=== PATIENT | male | born 1950 | race Caucasian/White ===

== ENCOUNTER 2016-03-20 11:19 | Day surgery (SDC) | payer OTHER ==
[2016-03-20] MEDS ORDERED: LACTATED RINGERS 1,000 ML IV ONE (11:53)
[2016-03-20] MEDS ORDERED: fentaNYL 250 MCG/5 ML VIAL IVP ONE (13:12)
[2016-03-20] MEDS ORDERED: MIDAZOLAM 2 MG/2 ML VIAL IVP ONE (13:12)
== END 2016-03-20 11:20 | disposition home or self-care (01) ==
PROC: 0DBL8ZZ Excision of Transverse Colon, Via Natural or Artificial Opening Endoscopic (ICD-10-PCS; 2016-03-20)
PROC: 0DBH8ZZ Excision of Cecum, Via Natural or Artificial Opening Endoscopic (ICD-10-PCS; principal; 2016-03-20 12:30)
DX: Z12.11 Encounter for screening for malignant neoplasm of colon (principal); D12.3 Benign neoplasm of transverse colon; D12.0 Benign neoplasm of cecum; K64.8 Other hemorrhoids; K57.30 Diverticulosis of large intestine without perforation or abscess without bleeding; Z87.891 Personal history of nicotine dependence; I10 Essential (primary) hypertension; Z95.0 Presence of cardiac pacemaker
CPT/HCPCS: 45380; J3010; J7120

== ENCOUNTER 2016-07-20 08:53 | Outpatient (CLI) | payer OTHER ==
[2016-07-20 09:21] LABS: CALCIUM 8.6 mg/dL (8.5-10.3); CREATININE 1.2 mg/dL (0.6-1.2); POTASSIUM 4.3 mmol/L (3.5-5.0)
[2016-07-20] MEDS ORDERED: IOPAMIDOL-300 100 ML VIAL IVP ONE (10:06)
--- NOTE | 2016-07-20 13:30 | CT Report ---
CT ANGIOGRAM OF THE ABDOMEN AND PELVIS WITH AND WITHOUT CONTRAST: 07/20/2016 CLINICAL INDICATION: History of abdominal aortic aneurysm with [id number]-ph-fwemr stent graft exclusion. COMPARISON: 12/27/2015. TECHNIQUE: Axial CT images of the abdomen and pelvis were obtained prior to and following 100 mL of Isovue-300, in early arterial and delayed phases. Sagittal and coronal 3D reconstructions were performed. FINDINGS: Limited evaluation of the lung bases demonstrates minimal atelectasis. ABDOMEN: Bilateral adrenal adenomas are stable. The kidneys demonstrate bilateral cortical cysts. Ktrfl-hb-qolbb stent graft is in stable position. Aneurysm sac has decreased in size, now measuring 5.9 cm maximal diameter ( previously 6.1 cm). There is normal enhancement of the fwqyx-dh-keerc stent graft following intravenous contrast administration, with no abnormal enhancement seen within the aneurysm sac on early arterial or delayed phases. The celiac, superior mesenteric, and renal arteries demonstrate normal arterial enhancement. No bowel dilatation, free gas, or free fluid is present. The gallbladder is not distended. PELVIS: Stent graft terminates in the common iliacs bilaterally. There is normal enhancement of the common, external, and internal iliac arteries. Sigmoid diverticulosis is present, without CT evidence of diverticulitis. No pelvic adenopathy or free fluid is present. The osseous structures demonstrate degenerative changes. IMPRESSION: AGGEY-HL-TRNGO STENT GRAFT IN PLACE, WITHOUT EVIDENCE OF LEAK. NO SIGNIFICANT INTERVAL CHANGE. In accordance with CT protocol optimization, one or more of the following dose reduction techniques were utilized for this exam: automated exposure control, adjustment of mA and/or KV based on patient size, or use of iterative reconstructive technique. JOB #: [id number] EXT JOB #: [id number] ANDREEA
== END 2016-07-20 08:54 | disposition home or self-care (01) ==
LOC: LAB 08:53
PROVIDERS: ATTEND Nurse Practitioner Family
DX: I71.4 Abdominal aortic aneurysm, without rupture (principal); Z95.0 Presence of cardiac pacemaker
CPT/HCPCS: 36415; 74178; 80048; Q9967

== ENCOUNTER 2017-01-06 06:46 | Outpatient (CLI) | payer OTHER ==
[2017-01-06 07:11] LABS: CREATININE 1.1 mg/dL (0.6-1.2)
[2017-01-06] MEDS ORDERED: IOPAMIDOL-300 100 ML VIAL ONE (07:31)
[2017-01-06] MEDS ORDERED: IOPAMIDOL-300 100 ML VIAL IVP ONE (08:17)
--- NOTE | 2017-01-06 17:05 | CT Report ---
EXAM: CT ANGIOGRAM ABDOMEN AND PELVIS WITH CONTRAST EXAM DATE: 01/06/2017 08:17 AM. CLINICAL HISTORY: Bloody stool. Melena. History of stent graft repair of abdominal aortic aneurysm. COMPARISONS: CTA abdomen and pelvis 07/20/2016. TECHNIQUE: Noncontrast scan followed by thin sections spiral CT angiography through the abdomen and p nani in the arterial phase. IV contrast: 100 cc Isovue-300. Enteric contrast: No. Reconstructions: C oronal, sagittal, and 3D MIP reconstructions. In accordance with CT protocol optimization, one or more of the following dose reduction techniques w ere utilized for this exam: automated exposure control, adjustment of mA and/or KV based on patient s ize, or use of iterative reconstructive technique. FINDINGS: Vasculature: Stable widely patent bifurcating aortoiliac endograft successfully occluding the fusifor m infrarenal abdominal aortic aneurysm. No endoleak identified on the available images. No delayed sc ans obtained. [place] aneurysm sac remains at 5.8 cm in axial diameter (coronal 83/14). Calcified aort ic, and iliac arterial plaques. No dissection. Patent major aortic branch vessels, noting calcified p laques at the origin of SMA and renal arteries as before. Lung Bases: Mild atelectasis or scarring. Stable heart size and small aneurysm with overlying myometr ial calcification at the left ventricular apex. Pacer leads in right atrial appendage and right ventr icular apex. Abdominal Solid Organs: Stable solid abdominal organs including hypodense bilateral adrenal nodules c onsistent with lipid-rich adenomas. Bilateral renal cysts up to 4.1 cm in maximal diameter in the lef t inferior pole. A stable hyperdense 1 exophytic upper pole left renal nodule, presumably hyperdense cyst. Symmetrical renal parenchymal enhancement. Gallbladder/Bile Ducts: Cholelithiasis. No suggestion of acute cholecystitis or ductal dilatation. Peritoneal Cavity: Small hiatus hernia. Suboptimally distended stomach presumably account for the zafar arent gastric mural thickening. No perigastric infiltration. No intestinal dilatation or acute inflam mation. Colonic diverticulosis. Normal appendix. No free air, free fluid, or mesenteric adenopathy by size criteria. Pelvic Organs: Slightly distended bladder, noting small urachal remnant. Other pelvic organs unchange d. Mildly prominent fatty bilateral inguinal canals. Bones: Stable degenerative changes of the spine. IMPRESSION: 1. No acute inflammatory or obstructive process identified. 2. Colonic diverticulosis without diverticulitis. 3. Small hiatus hernia. Nonspecific thickening of the contracted stomach. 4. Stable bifurcating aortoiliac stent graft excluding the infrarenal abdominal aortic aneurysm. No a pparent endoleak or enlargement of the [place] aneurysm sac. 5. Cholelithiasis. 6. Stable renal cysts. 7. 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 [facility] Referring Provider Line: [phone] SITE ID: [id number]
== END 2017-01-06 06:47 | disposition home or self-care (01) ==
LOC: LAB 06:46
PROVIDERS: ATTEND Surgery
DX: K57.30 Diverticulosis of large intestine without perforation or abscess without bleeding (principal); K44.9 Diaphragmatic hernia without obstruction or gangrene; K80.20 Calculus of gallbladder without cholecystitis without obstruction; N28.1 Cyst of kidney, acquired; Z95.5 Presence of coronary angioplasty implant and graft
CPT/HCPCS: 36415; 74174; 82565; Q9967

== ENCOUNTER 2017-02-05 10:00 | Day surgery (SDC) | payer OTHER ==
[2017-02-05] MEDS ORDERED: LACTATED RINGERS 1,000 ML IV ONE (10:22)
[2017-02-05] MEDS ORDERED: LIDO GARGLE 30 ML BOTTLE TOP ONE (10:55)
[2017-02-05] MEDS ORDERED: BENZOCAINE/TETRACAINE/BUTAMBEN SPRAY 56 GM TOP ONE (10:55)
[2017-02-05] MEDS ORDERED: MIDAZOLAM 2 MG/2 ML VIAL IVP ONE (11:00)
[2017-02-05] MEDS ORDERED: LIDOCAINE-MPF 2% 5 ML VIAL IM ONE (11:00)
[2017-02-05] MEDS ORDERED: ePHEDrine 50 MG/ML AMP IVP ONE (11:00)
[2017-02-05] MEDS ORDERED: PROPOFOL 200 MG/20 ML VIAL IVP ONE (11:00)
[2017-02-05 11:46] VITALS: BP 102/76
== END 2017-02-05 10:01 | disposition home or self-care (01) ==
LOC: SDS 10:00
PROVIDERS: ATTEND Surgery
PROC: 0DB68ZX Excision of Stomach, Via Natural or Artificial Opening Endoscopic, Diagnostic (ICD-10-PCS; principal; 2017-02-05 11:15)
DX: K29.80 Duodenitis without bleeding (principal); K29.70 Gastritis, unspecified, without bleeding; K44.9 Diaphragmatic hernia without obstruction or gangrene; I10 Essential (primary) hypertension; Z95.0 Presence of cardiac pacemaker; E78.00 Pure hypercholesterolemia, unspecified; Z79.01 Long term (current) use of anticoagulants
CPT/HCPCS: 43239; 87081; A9270; J7120

== ENCOUNTER 2017-06-27 07:16 | Outpatient (CLI) | payer OTHER ==
--- NOTE | 2017-06-27 09:33 | CT Report ---
CT ABDOMEN AND PELVIS WITHOUT CONTRAST: 06/27/2017 CLINICAL INDICATION: History of stent graft placement. COMPARISON: 07/20/2016. FINDINGS: Axial CT images of the abdomen and pelvis were obtained without oral or intravenous contrast. Limited evaluation of the lung bases is unremarkable. Abdomen: Allowing for the lack of contrast, the liver, spleen, pancreas appear unremarkable. The gallbladder demonstrates cholelithiasis, stable. Bilateral adrenal adenomas are stable. The kidneys demonstrate cortical cysts. Aortobiiliac stent graft appears stable. No bowel dilatation, free gas, or free fluid is present. No abdominal adenopathy is seen. Pelvis: Sigmoid diverticulosis is present, without CT evidence of diverticulitis. The appendix is seen in the right lower quadrant, and is normal in caliber. No pelvic adenopathy or free fluid is present. Osseous structures demonstrate degenerative changes. IMPRESSION: Stable noncontrast appearance of aortobiiliac stent graft. No significant interval change from 07/20/2016. TD: 06/27/2017 09:33
== END 2017-06-27 07:17 | disposition home or self-care (01) ==
LOC: DI 07:16
PROVIDERS: ATTEND Surgery Vascular Surgery
DX: Z95.828 Presence of other vascular implants and grafts (principal); K57.30 Diverticulosis of large intestine without perforation or abscess without bleeding
CPT/HCPCS: 74176

== ENCOUNTER 2018-05-22 08:46 | Outpatient (CLI) | payer OTHER ==
[2018-05-22 09:15] LABS: ALBUMIN 4.2 g/dL (3.2-5.5); ALBUMIN/GLOBULIN RATIO 1.4 (1.0-2.2); BILIRUBIN,TOTAL 1.1 mg/dL (0.2-1.0); CALCIUM 8.5 mg/dL (8.5-10.3); CREATININE 1.3 mg/dL (0.6-1.2); MAGNESIUM 1.9 mg/dL (1.7-2.8); TOTAL PROTEIN 7.1 g/dL (6.7-8.2)
[2018-05-22 09:38] LABS: INR 1.7 (0.8-1.2); PT - PROTHROMBIN TIME 18.9 secs (9.9-12.6)
== END 2018-05-22 08:47 | disposition home or self-care (01) ==
LOC: LAB 08:46
PROVIDERS: ATTEND Internal Medicine Cardiovascular Disease
DX: Z79.899 Other long term (current) drug therapy (principal)
CPT/HCPCS: 36415; 80053; 83735; 84443; 85610

== ENCOUNTER 2018-05-26 04:57 | Outpatient (CLI) | payer OTHER | END 2018-05-26 04:58 | disposition critical access hospital (66) | LOC: EMS 04:57 | PROVIDERS: ATTEND Surgery | DX: R06.02 Shortness of breath (principal); R53.1 Weakness | CPT/HCPCS: A0425; A0427 ==

== ENCOUNTER 2018-05-26 05:04 | Emergency (ER) | payer OTHER ==
[2018-05-26] MEDS ORDERED: IPRATROPIUM/ALBUTEROL 3 ML NEB INH STA ×2 (05:13→10:14)
--- NOTE | 2018-05-26 05:15 | ED Physician Documentation ---
PD HPI DYSPNEA - Stated complaint Stated Complaint: SOA - History obtained from History obtained from: Patient - History of Present Illness Timing - onset: Yesterday Timing - onset during: Rest Timing - duration: Days (2) Timing - details: Gradual onset, Still present Inciting event(s): URI Improved by: Inhaler/neb Worsened by: Exertion, Laying flat, Coughing Associated symptoms: Cough, Wheezing. No: Fever, Chest pain / discomfort Similar symptoms before: Has not had sx before Recently seen: Clinic - Additional information Additional information: 67-year-old male with a prior history of coronary artery disease and CABG has developed acute dyspnea. He states that he is not able to get a full deep breath and he has never had these symptoms previously. He denies ever using an inhaler. He did feel that he was getting a cough and congestion and then he developed this difficulty breathing. He denies any chest pain associated with this. He does feel that he was having some difficulty for several days before the onset of shortness of breath. He has been into see Dr. Batsheva Calhoun recently and has an appointment to get a cardioversion done for persistent atrial fibrillation. He has been placed on amiodarone recently. Review of Systems Constitutional: denies: Fever, Chills, Myalgias Eyes: denies: Decreased vision Ears: denies: Ear pain Nose: denies: Rhinorrhea / runny nose, Congestion Throat: denies: Sore throat Cardiac: denies: Chest pain / pressure, Palpitations, Pedal edema, Calf pain Respiratory: reports: Dyspnea, Cough GI: denies: Abdominal Pain, Nausea, Vomiting : denies: Dysuria, Frequency Skin: denies: Rash Musculoskeletal: denies: Neck pain, Back pain, Extremity pain Neurologic: denies: Generalized weakness, Focal weakness, Numbness PD PAST MEDICAL HISTORY - Past Medical History Cardiovascular: Hypertension, High cholesterol, VT, Atrial fibrillation Respiratory: None Endocrine/Autoimmune: None GI: GI bleed : None HEENT: None Psych: None Musculoskeletal: None Derm: None - Past Surgical History Cardiovascular: CABG, Pacemaker, AAA - Present Medications Home Medications: Ambulatory Orders Medication Instructions Recorded Confirmed Atorvastatin Calcium 80 mg PO DAILY 03/17/16 02/05/17 Carvedilol 3.125 mg PO DAILY 03/17/16 02/05/17 Lisinopril [Zestril] 5 mg PO DAILY 03/17/16 02/05/17 Rivaroxaban [Xarelto] 20 mg PO DAILY 03/17/16 02/05/17 - Allergies Allergies/Adverse Reactions: Allergies Allergy/AdvReac Type Severity Reaction Status Date / Time codeine AdvReac Nausea Verified 03/17/16 13:57 PD ED PE NORMAL - Vitals Vital signs reviewed: Yes - General General: Alert and oriented X 3, Well developed/nourished, Other (dyspneic at rest. ) - HEENT HEENT: Atraumatic, PERRL, EOMI - Neck Neck: Supple, no meningeal sign, No bony TTP - Cardiac Cardiac: RRR, No murmur - Respiratory Respiratory: Other (dyspneic at rest with diminished breath sounds bilat and expritory wheeze.) - Abdomen Abdomen: Soft, Non tender - Back Back: No CVA TTP, No spinal TTP - Derm Derm: Normal color, Warm and dry, No rash - Extremities Extremities: No deformity, No edema - Neuro Neuro: Alert and oriented X 3, basket person 2-12 intact, No motor deficit, No sensory deficit, Normal speech Eye Opening: Spontaneous Motor: Obeys Commands Verbal: Oriented GCS Score: 15 - Psych Psych: Normal mood, Normal affect Results - Vitals Vitals: Vital Signs - 24 hr 05/26/18 05/26/18 05/26/18 05:02 05:36 07:43 Temperature 36.4 C L 36.5 C Heart Rate 82 80 82 Respiratory 16 14 19 Rate Blood Pressure 172/109 H 113/97 H O2 Saturation 95 94 Oxygen O2 Source Nasal cannula - EKG (time done) 0507 Rate: Rate (enter#) (87) Rhythm: Atrial fibrillation Intervals: Wide QRS QRS: LVH Compare to prior EKG: Old EKG unavailable Computer interpretation: Agree with computer - Labs Labs: Laboratory Tests 05/26/18 05/26/18 05/26/18 05:25 05:25 05:25 WBC 9.3 RBC 4.42 L Hgb 15.6 Hct 46.2 MCV 104.4 H MCH 35.2 H MCHC 33.7 RDW 15.3 H Plt Count 149 MPV 10.0 Neut # (Auto) 7.8 H Lymph # (Auto) 0.7 L Harmon # (Auto) 0.7 Eos # (Auto) 0.0 Baso # (Auto) 0.0 Absolute Nucleated RBC 0.00 Nucleated RBC % 0.1 Sodium 139 Potassium 4.3 Chloride 100 L Carbon Dioxide 23 Anion Gap 16.0 H BUN 21 H Creatinine 1.3 H Estimated GFR (MDRD) 55 L Glucose 124 H Calcium 8.4 L Total Bilirubin 1.1 H AST 45 H ALT 29 Alkaline Phosphatase 55 Troponin I 0.07 B-Natriuretic Peptide Total Protein 7.4 Albumin 4.0 Globulin 3.4 Albumin/Globulin Ratio 1.2 Lipase 27 Urine Color Urine Clarity Urine pH Ur Specific [place] Urine Protein Urine Glucose (UA) Urine Ketones Urine Occult Blood Urine Nitrite Urine Bilirubin Urine Urobilinogen Ur Leukocyte Esterase Urine RBC Urine WBC Ur Squamous Epith Cells Urine Bacteria Urine Casts Ur Microscopic Review Urine Culture Comments 05/26/18 05/26/18 05:25 06:30 WBC RBC Hgb Hct MCV MCH MCHC RDW Plt Count MPV Neut # (Auto) Lymph # (Auto) Harmon # (Auto) Eos # (Auto) Baso # (Auto) Absolute Nucleated RBC Nucleated RBC % Sodium Potassium Chloride Carbon Dioxide Anion Gap BUN Creatinine Estimated GFR (MDRD) Glucose Calcium Total Bilirubin AST ALT Alkaline Phosphatase Troponin I B-Natriuretic Peptide 1051 H Total Protein Albumin Globulin Albumin/Globulin Ratio Lipase Urine Color YELLOW Urine Clarity CLEAR Urine pH 6.0 Ur Specific [place] 1.025 Urine Protein 30 H Urine Glucose (UA) NEGATIVE Urine Ketones 15 H Urine Occult Blood NEGATIVE Urine Nitrite NEGATIVE Urine Bilirubin NEGATIVE Urine Urobilinogen 0.2 (NORMAL) Ur Leukocyte Esterase NEGATIVE Urine RBC None Seen Urine WBC 0-3 Ur Squamous Epith Cells MOD Squamous H Urine Bacteria None Seen Urine Casts 3-5 Hyaline Casts Ur Microscopic Review INDICATED Urine Culture Comments NOT INDICATED - Rads (name of study) chest 1 view Radiology: Prelim report reviewed (Impression: Diffuse interstitial opacities with subtle nodular component raising question of interstitial pneumonia/bronchopneumonia. There could be a component of mild edema as well in this patient with cardiomegaly.), EMP read indepedently, See rad report Procedures - IVC sono (time) 3792 Bedside IVC sono: IVC measures (cm) (3.08), High CVP, Fluid overload PD MEDICAL DECISION MAKING - ED course Complexity details: reviewed old records, reviewed results, re-evaluated patient, considered differential, d/w patient, d/w software developer consultant (Dr. Elam top dyeing machine tender at [facility]: No beds today at [facility], patient will need echo and cath and should not go home from the ED. He indicates he was started on amioderone and this did not stop the afib. He is concened about grafts failing.) ED course: 67-year-old male with a 2-day history of dyspnea at rest and worse with exertion has some improvement with the use of a DuoNeb treatment and at the conclusion of his second treatment tells me that he feels back to normal. He certainly is not. His chest x-ray shows pulmonary edema and interrogation the inferior vena cava shows a vessel greater than 3 cm in size and the patient is administered intravenous Lasix. He has improvement with this. Dr. Elam recommends admission of this patient to a center with a top dyeing machine tender and a crime lab analyst as he is concerned that this likely represents a problem with graft failure and not just intolerance of afib. Departure - Departure Disposition: 02 Transfer Acute Care Hosp Clinical Impression: Congestive heart failure Qualifiers: Heart failure type: unspecified Heart failure chronicity: acute Qualified Code(s): I50.9 - Heart failure, unspecified Condition: Serious
[2018-05-26 05:32] LABS: BASOPHILS % (AUTO) 0.2 %; HGB - HEMOGLOBIN 15.6 g/dL (14.0-18.0); LYMPHOCYTES # (AUTO) 0.7 10^3/uL (1.5-3.5); LYMPHOCYTES % (AUTO) 7.8 %; MEAN CORPUSCULAR HEMOGLOBIN 35.2 pg (27.0-31.0); MEAN CORPUSCULAR HGB CONC 33.7 g/dL (32.0-36.0); MEAN CORPUSCULAR VOLUME 104.4 fL (80.0-94.0); MONOCYTES # (AUTO) 0.7 10^3/uL (0.0-1.0); MONOCYTES % (AUTO) 7.6 %; NEUTROPHILS # (AUTO) 7.8 10^3/uL (1.5-6.6); NEUTROPHILS % (AUTO) 84.4 %; PLT - PLATELET COUNT 149 10^3/uL (130-450); RED BLOOD COUNT 4.42 10^6/uL (4.70-6.10); RED CELL DISTRIBUTION WIDTH 15.3 % (12.0-15.0); WHITE BLOOD COUNT 9.3 x10^3/uL (4.8-10.8)
[2018-05-26 05:43] LABS: ALBUMIN/GLOBULIN RATIO 1.2 (1.0-2.2); BILIRUBIN,TOTAL 1.1 mg/dL (0.2-1.0); CALCIUM 8.4 mg/dL (8.5-10.3); CREATININE 1.3 mg/dL (0.6-1.2); TOTAL PROTEIN 7.4 g/dL (6.7-8.2)
--- NOTE | 2018-05-26 05:43 | XRAY Report ---
Reason: dyspnea Procedure Date: 05/26/2018 Accession Number: [id number] / [id number] Procedure: XR - Chest 1 View X-Ray CPT Code: 60145 FULL RESULT: EXAM: CHEST RADIOGRAPHY EXAM DATE: 05/26/2018 05:17 AM. CLINICAL HISTORY: Dyspnea. COMPARISON: ABDOMEN/PELVIS W/O 06/27/2017 7:24 AM. TECHNIQUE: 1 view. FINDINGS: Lungs/Pleura: Diffuse interstitial opacities with somewhat nodular component, particularly at the left lung base No large effusion. No gross pneumothorax. Mediastinum: Mild cardiomegaly. No mediastinal shift. Other: Post median sternotomy. Dual lead left chest pacer present. IMPRESSION: Diffuse interstitial opacities with subtle nodular component raising question of interstitial pneumonia/bronchopneumonia. There could be a component of mild edema as well in this patient with cardiomegaly. [facility]
[2018-05-26] MEDS ORDERED: FUROSEMIDE 40 MG/4 ML VIAL IVP STA (05:56)
[2018-05-26 06:32] LABS: BILIRUBIN,URINE NEGATIVE (NEGATIVE); GLUCOSE, URINE (UA) NEGATIVE (NEGATIVE); KETONES,URINE (UA) 15 mg/dL (NEGATIVE); LEUKOCYTE ESTERASE, URINE NEGATIVE (NEGATIVE); NITRITE,URINE NEGATIVE (NEGATIVE); OCCULT BLOOD,URINE NEGATIVE (NEGATIVE); PROTEIN,URINE 30 mg/dL (NEGATIVE); UROBILINOGEN,URINE 0.2 (NORMAL) E.U./dL (NORMAL)
[2018-05-26 06:33] LABS: CLARITY,URINE CLEAR (CLEAR)
[2018-05-26 06:38] LABS: RBC,URINE None Seen /HPF (0-5)
[2018-05-26 06:39] LABS: BACTERIA,URINE None Seen /HPF (None Seen); CASTS, URINE 3-5 Hyaline Casts /LPF; SQUAMOUS EPITHELIAL CELL,UR MOD Squamous (<= Few)
[2018-05-26 12:12] VITALS: BP 123/80
== END 2018-05-26 12:33 | disposition short-term general hospital (02) ==
LOC: EDUNIT# → ED 05:04
DX: I11.0 Hypertensive heart disease with heart failure (principal); I50.9 Heart failure, unspecified; I25.2 Old myocardial infarction; E78.00 Pure hypercholesterolemia, unspecified; I48.91 Unspecified atrial fibrillation; Z79.01 Long term (current) use of anticoagulants; Z95.0 Presence of cardiac pacemaker
CPT/HCPCS: 36415; 71045; 80053; 81001; 81003; 83690; 83880; 84484; 85025; 87086; 93005; 94640; 96374; 99284

== ENCOUNTER → 2018-07-19 | Outpatient (CLI) | payer OTHER | END | disposition home or self-care (01) | LOC: DI 07:03 | PROVIDERS: ATTEND Surgery Vascular Surgery | DX: Z53.9 Procedure and treatment not carried out, unspecified reason (principal) ==

== ENCOUNTER 2018-07-28 07:05 | Outpatient (CLI) | payer OTHER ==
--- NOTE | 2018-07-28 15:13 | XRAY Report ---
Reason: AORTIC STENT PLACEMENT Procedure Date: 07/28/2018 Accession Number: [id number] / [id number] Procedure: XR - Abdomen 2 View X-Ray CPT Code: 39967 FULL RESULT: EXAM: ABDOMEN RADIOGRAPHY EXAM DATE: 07/28/2018 07:20 AM. CLINICAL HISTORY: AORTIC STENT PLACEMENT. COMPARISON: ABDOMEN/PELVIS W/O 06/27/2017 7:24 AM. TECHNIQUE: 2 views including frontal and lateral views. FINDINGS: Lung Bases: Unremarkable. Bowel Gas Pattern: Within normal limits. No dilated gas-filled loops of bowel or abnormal colonic stool burden. Free Air: None. Other: Aortobiiliac stent graft is present. The position and course of the stent grafts appears unchanged compared to entry level accounting clerk images from prior CT of the abdomen and pelvis on 06/27/2017. No acute osseous abnormality. There are mild degenerative disk changes of the lumbar spine. IMPRESSION: 1. Nonobstructive bowel gas pattern. 2. Aortobiiliac stent graft position appears unchanged compared to 06/27/2017 [facility]
== END 2018-07-28 07:06 | disposition home or self-care (01) ==
LOC: DI 07:05
PROVIDERS: ATTEND Surgery Vascular Surgery
DX: Z09 Encounter for follow-up examination after completed treatment for conditions other than malignant neoplasm (principal); Z95.828 Presence of other vascular implants and grafts; Z86.79 Personal history of other diseases of the circulatory system
CPT/HCPCS: 74019

== ENCOUNTER 2018-08-05 07:21 | Outpatient (CLI) | payer OTHER ==
--- NOTE | 2018-08-05 09:43 | Ultrasound Report ---
Reason: ABDOMINAL AORTIC ANEURYSM,WITHOUT RUPTURE Procedure Date: 08/05/2018 Accession Number: [id number] / [id number] Procedure: US - Duplex Aorta Complete CPT Code: FULL RESULT: EXAM: AORTIC DOPPLER ULTRASOUND EXAM DATE: 08/05/2018 08:32 AM. CLINICAL HISTORY: Abdominal aortic aneurysm, without rupture. COMPARISON: ABDOMEN/PELVIS W/O 06/27/2017 7:24 AM. TECHNIQUE: Real-time sonographic imaging of retroperitoneal vascular structures, including color-flow, Doppler flow and spectral analysis was performed by the concrete mixer operator helper. Multiple community service representative static images were saved for review. FINDINGS: Aorta: The abdominal aorta status post endovascular repair is visualized including a bilobed infrarenal abdominal aortic aneurysm similar in configuration to the CT study in 2018. The sampled aorta and iliac vessels are patent by color Doppler. No definite flow is detected within the excluded aneurysm sac by color or spectral Doppler. Peak systolic velocity within the proximal aorta is 63 cm/s. In the stent graft at the mid aorta, peak systolic velocity is 73 cm/s. Right common iliac artery stent graft peak systolic velocity is 78 cm/s and a left common iliac artery stent graft peak systolic velocity is 76 cm/s. Taken orthogonally to the long axis of the aorta, the maximal dimensions of the aneurysm sac in the mid aorta is 4.7 x 5.9 cm with the larger dimension representing the maximal transverse dimension of the aneurysm sac and the second measurement orthogonally to this, as remeasured by the radiologist on image 16. With the same technique of the distal aneurysm sac measures 4.6 x 3.9 cm as remeasured by the radiologist on image 25. Compared to previous dimensions by CT, differences could be due to technique. Other: None. IMPRESSION: Patent stent graft with excluded aneurysm sac dimensions by ultrasound as described in detail above. No definite flow within the aneurysm sac by color Doppler. [facility]
== END 2018-08-05 07:22 | disposition home or self-care (01) ==
LOC: DI 07:21
PROVIDERS: ATTEND Surgery Vascular Surgery
DX: I71.4 Abdominal aortic aneurysm, without rupture (principal)
CPT/HCPCS: 93978

== ENCOUNTER 2019-07-09 07:02 | Outpatient (CLI) | payer OTHER ==
--- NOTE | 2019-07-09 16:45 | Ultrasound Report ---
Reason: HEART FAILURE Procedure Date: 07/09/2019 Accession Number: [id number] / [id number] Procedure: US - Retroperitoneal Limited CPT Code: Final Report FULL RESULT: EXAM: AORTIC DOPPLER ULTRASOUND EXAM DATE: 07/09/2019 07:43 AM. CLINICAL HISTORY: Heart failure. Status post endovascular aneurysm repair in October 2015. COMPARISON: DUPLEX AORTA COMPLETE 08/05/2018 7:30 AM. TECHNIQUE: Real-time sonographic imaging of retroperitoneal vascular structures, including color-flow, Doppler flow and spectral analysis was performed by the food and nutrition teacher. Multiple brand representative static images were saved for review. FINDINGS: Aorta: The abdominal aorta is adequately visualized. Abdominal aortic aneurysm is again seen, midportion measuring 4.5 x 5.8 cm, previously 4.8 x 5.9 cm and distally 4.8 x 3.8 cm and prior 4.1 x 4.3 cm. Endovascular stent graft is again seen. The endovascular graft is patent and confirmed with color Doppler interrogation. Aorta: Proximal: Sagittal AP: 2.8 cm. Mid: Transverse: 2.6 x 2.6 cm. Distal: Transverse: 4.8 x 3.8 cm. Plaque visualized: Yes. Iliacs: Right Iliac: Transverse: 1.5 x 1.8 cm. Left Iliac: Transverse: 1.5 x 1.5 cm. Iliac Vessels: Iliac arteries are again seen and mildly prominent as before. Other: None. IMPRESSION: 1. Stable changes status post endograft repair of abdominal aortic aneurysm with the kiana aneurysm stable in size measuring up to 5.8 cm on the current study. [facility]
== END 2019-07-09 07:03 | disposition home or self-care (01) ==
LOC: DI 07:02
PROVIDERS: ATTEND Surgery Vascular Surgery
DX: I71.4 Abdominal aortic aneurysm, without rupture (principal); I10 Essential (primary) hypertension; I48.91 Unspecified atrial fibrillation; Z79.01 Long term (current) use of anticoagulants; E78.2 Mixed hyperlipidemia; I25.5 Ischemic cardiomyopathy; Z95.0 Presence of cardiac pacemaker
CPT/HCPCS: 76775

== ENCOUNTER 2020-07-03 07:22 | Outpatient (CLI) | payer OTHER ==
--- NOTE | 2020-07-03 19:38 | Ultrasound Report ---
PROCEDURE: Duplex Aorta Complete INDICATIONS: AAA TECHNIQUE: Color and pulse Doppler interrogation was performed of the aorta and iliac arterial systems, with miguel angel ge documentation. COMPARISON: Aorta ultrasound dated 08/05/2018 CT dated 06/27/2017 FINDINGS: Limited examination given adjacent bowel gas. Aorta: The abdominal aorta is again noted to be postendovascular repair with infrarenal abdominal aortic ane urysm excluded with bilateral aortoiliac stents. No definite color flow is noted within the excluded sac. The sac measures 4.7 x 5.centimeters in transverse diameter which is grossly unchanged compared to 4.7 x 5.9 cm on comparison ultrasound. Peak systolic velocity within the proximal aorta is 55.2 cm/s. Within the mid aorta just proximal to the stent in the peak systolic velocity measures 53.8 cm/s. The right stent graft measures 38.6-46.0 cm/s. The right stenting graft measures 32.6-52.7 cm/s. Evaluation of the iliac arteries is limited e valuation. The proximal right common iliac artery peak systolic velocity measures 54.9 cm/s. The left proximal common internal artery peak systolic velocity measures 66.0 cm/s. Color flow and triphasic waveforms are noted throughout the imaged stent. IMPRESSION: Patent stent graft within limits of this examination. The excluded aneurysmal sac is grossly unchange d in size in comparison without definite color flow on Doppler. Reviewed by: Adrien Andre DO on 07/03/2020 6:36 PM LUIS ENRIQUE Approved by: Adrien Andre DO on 07/03/2020 6:36 PM LUIS ENRIQUE Station ID: [id number]
== END 2020-07-03 07:23 | disposition home or self-care (01) ==
LOC: DI 07:22
PROVIDERS: ATTEND Surgery Vascular Surgery
DX: I71.4 Abdominal aortic aneurysm, without rupture (principal); Z95.828 Presence of other vascular implants and grafts
CPT/HCPCS: 93978

== ENCOUNTER 2020-07-17 07:56 | Outpatient (CLI) | payer OTHER ==
--- NOTE | 2020-07-17 20:20 | XRAY Report ---
PROCEDURE: Abdomen Acute INDICATIONS: AAA SP EVAR TECHNIQUE: One view chest and 4 views of the abdomen were acquired, including bilateral oblique view s and a lateral view. COMPARISON: 07/28/2018. CT 06/27/2017 FINDINGS: Surgical changes and devices: An AICD can be seen. Sternotomy changes are noted. An aortobiiliac stent grafts can be seen. The appearance is similar to the prior plain films. Chest: Lungs are clear. Heart size is normal. No pleural effusions. No pneumoperitoneum. Abdomen: Bowel gas pattern is normal. No suspicious calcifications. Visualized solid organ contour s appear normal. Bones: No suspicious bony lesions. Age-appropriate degenerative changes are seen. Mild levoconvex scoliotic curvature is seen. IMPRESSION: Stable aortobiiliac stent graft by plain film. Incidental note is made of: AICD sternotomy Levoconvex scoliotic curvature Bony degenerative change Reviewed by: John López MD on 07/17/2020 7:18 PM AKDT Approved by: John López MD on 07/17/2020 7:18 PM AKDT Station ID: [id number]
== END 2020-07-17 07:57 | disposition home or self-care (01) ==
LOC: DI 07:56
PROVIDERS: ATTEND Surgery Vascular Surgery
DX: Z09 Encounter for follow-up examination after completed treatment for conditions other than malignant neoplasm (principal); Z86.79 Personal history of other diseases of the circulatory system; Z95.828 Presence of other vascular implants and grafts

== ENCOUNTER 2021-04-03 15:17 | Emergency (ER) | payer OTHER ==
--- NOTE | 2021-04-03 15:33 | ED Physician Documentation ---
PD HPI ABD PAIN - Stated complaint Stated Complaint: CONSTIPATION - Chief complaint Chief Complaint: Abd Pain - History obtained from History obtained from: Patient - Additional information Additional information: Without Specific reason or medication changes he has not had a bowel movement in a week despite trying multiple [id number] laxatives and is primary care started lactulose. He feels a lot of rectal pressure. No significant abdominal pain or vomiting. No fevers. Review of Systems Constitutional: reports: Reviewed and negative Throat: reports: Reviewed and negative Cardiac: reports: Reviewed and negative Respiratory: reports: Reviewed and negative PD PAST MEDICAL HISTORY - Past Medical History Cardiovascular: Hypertension, High cholesterol, [place], Atrial fibrillation Respiratory: None Endocrine/Autoimmune: None GI: GI bleed : None HEENT: None Psych: None Musculoskeletal: None Derm: None - Past Surgical History Cardiovascular: CABG, Pacemaker, AAA - Present Medications Home Medications: Ambulatory Orders Medication Instructions Recorded Confirmed Atorvastatin Calcium 80 mg PO DAILY 03/17/16 02/05/17 Carvedilol 3.125 mg PO DAILY 03/17/16 02/05/17 Lisinopril [Zestril] 5 mg PO DAILY 03/17/16 02/05/17 Rivaroxaban [Xarelto] 20 mg PO DAILY 03/17/16 02/05/17 - Allergies Allergies/Adverse Reactions: Allergies Allergy/AdvReac Type Severity Reaction Status Date / Time codeine AdvReac Nausea Verified 04/03/21 15:25 - Social History Does the pt smoke?: No Smoking Status: Never smoker PD ED PE NORMAL - Vitals Vital signs reviewed: Yes - General General: Alert and oriented X 3, No acute distress - Abdomen Abdomen: Normal bowel sounds, Soft, Non tender - Rectal Rectal: Other (On rectal examination the vault initially felt empty, but then he had a large-volume liquidy bowel movement. There was no fecal impaction noted within fingers length. Having the bowel movement did not resolve his symptoms.) - Neuro Neuro: Alert and oriented X 3, Normal speech - Psych Psych: Normal mood, Normal affect Results - Vitals Vitals: Vital Signs - 24 hr 04/03/21 04/03/21 04/03/21 15:24 15:25 18:00 Temperature 36.7 C 36.7 C Heart Rate 72 72 80 Respiratory 16 16 18 Rate Blood Pressure 122/66 122/66 129/70 O2 Saturation 100 100 99 Oxygen O2 Source Room air - Labs Labs: Laboratory Tests 04/03/21 04/03/21 16:00 16:00 WBC 9.8 RBC 4.22 L Hgb 14.5 Hct 42.3 MCV 100.2 H MCH 34.4 H MCHC 34.3 RDW 13.9 Plt Count 206 MPV 11.4 Neut # (Auto) 6.4 Lymph # (Auto) 2.4 [place] # (Auto) 0.7 Eos # (Auto) 0.2 Baso # (Auto) 0.1 Absolute Nucleated RBC 0.00 Nucleated RBC % 0.0 Sodium 134 L Potassium 4.0 Chloride 101 Carbon Dioxide 22 Anion Gap 11.0 BUN 16 Creatinine 1.2 Estimated GFR (MDRD) 60 L Glucose 104 H Calcium 9.0 Total Bilirubin 1.1 H AST 23 ALT 24 Alkaline Phosphatase 64 Total Protein 7.4 Albumin 4.5 Globulin 2.9 Albumin/Globulin Ratio 1.6 Lipase 32 - Rads (name of study) CT A/P Radiology: EMP read contemporaneously (Aortoiliac stent, cholelithiasis, adrenal adenomas, renal cysts, DDD) PD MEDICAL DECISION MAKING - ED course ED course: 70-year-old gentleman with symptoms of fecal impaction but none present on exam and therefore CT was done and frankly looks like his bowels have been cleaned out so I suppose the most likely answer is that the rectal spasms at this point are due to the laxatives and he had another bowel movement here and was feeling better after that, recommended return to regular diet and no more laxatives. Departure - Departure Disposition: 01 Home, Self Care Clinical Impression: Abdominal pain Qualifiers: Abdominal location: lower abdomen, unspecified Qualified Code(s): R10.30 - Lower abdominal pain, unspecified Stimulant laxative causing adverse effect in therapeutic use Qualifiers: Encounter type: initial encounter Qualified Code(s): T47.2X5A - Adverse effect of stimulant laxatives, initial encounter Condition: Stable Record reviewed to determine appropriate education?: Yes Instructions: ED Abdominal Pain Unkn Cause Male Comments: CT showing no significant stool load, looks like the laxatives have completely cleaned you out and suspect the rectal pressure now is due to the laxatives. You need to schedule colonoscopy if you have not had one in the last few years- talk with Dr George about this. Return if needed for new or worse symptoms. Go back to a regular diet and suspect your symptoms will improve within a couple of days.
[2021-04-03] MEDS ORDERED: IOVERSOL 320 100 ML VIAL IVP ONE ×2 (16:00→19:02)
[2021-04-03 16:06] LABS: BASOPHILS # (AUTO) 0.1 10^3/uL (0.0-0.1); BASOPHILS % (AUTO) 0.7 %; EOSINOPHILS # (AUTO) 0.2 10^3/uL (0.0-0.7); EOSINOPHILS % (AUTO) 1.9 %; HCT - HEMATOCRIT 42.3 % (42.0-52.0); HGB - HEMOGLOBIN 14.5 g/dL (14.0-18.0); LYMPHOCYTES # (AUTO) 2.4 10^3/uL (1.5-3.5); LYMPHOCYTES % (AUTO) 24.8 %; MEAN CORPUSCULAR HEMOGLOBIN 34.4 pg (27.0-31.0); MEAN CORPUSCULAR HGB CONC 34.3 g/dL (32.0-36.0); MEAN CORPUSCULAR VOLUME 100.2 fL (80.0-94.0); MEAN PLATELET VOLUME 11.4 fL (7.4-11.4); MONOCYTES # (AUTO) 0.7 10^3/uL (0.0-1.0); MONOCYTES % (AUTO) 6.8 %; NEUTROPHILS # (AUTO) 6.4 10^3/uL (1.5-6.6); NEUTROPHILS % (AUTO) 65.6 %; PLT - PLATELET COUNT 206 10^3/uL (130-450); RED BLOOD COUNT 4.22 10^6/uL (4.70-6.10); RED CELL DISTRIBUTION WIDTH 13.9 % (12.0-15.0); WHITE BLOOD COUNT 9.8 x10^3/uL (4.8-10.8)
[2021-04-03 16:19] LABS: ALBUMIN 4.5 g/dL (3.2-5.5); ALBUMIN/GLOBULIN RATIO 1.6 (1.0-2.2); BILIRUBIN,TOTAL 1.1 mg/dL (0.2-1.0); CREATININE 1.2 mg/dL (0.6-1.2); TOTAL PROTEIN 7.4 g/dL (6.7-8.2)
--- NOTE | 2021-04-03 18:08 | CT Report ---
PROCEDURE: CT abdomen and pelvis with contrast INDICATIONS: IV only, abd pain, constipation CONTRAST: IV CONTRAST: Isovue 300 ml: 100 PO CONTRAST: *NO PO CONTRAST TECHNIQUE: After the administration of contrast, 5 mm thick sections acquired from the diaphragms to the sym physis. 5 mm thick coronal and sagittal reformats were acquired. For radiation dose reduction, the following was used: automated exposure control, adjustment of mA and/or kV according to patient size . COMPARISON: None. FINDINGS: Image quality: Excellent. ABDOMEN: Lung bases: Lung bases are clear. Heart size is normal. Solid organs: Liver and spleen are normal in size and enhancement. Gallbladder shows dependent gall stones without CT evidence of acute cholecystitis. Biliary system is non dilated. Pancreas enhances normally. Bilateral low-density adrenal nodules noted, largest is on the left measuring 3 x 2. Kidn eys demonstrate normal size and enhancement, without hydronephrosis. Bilateral renal cysts are great er than left measuring up to 3.9 cm. No hydronephrosis. Peritoneum and bowel: Bowel loops demonstrate normal wall thickness and caliber. No free fluid or a ir. Normal appendix identified. Multiple diverticula arise from the sigmoid and descending colon wit hout evidence of diverticulitis Nodes and vessels: No retroperitoneal or mesenteric adenopathy by size criteria. Aorta and inferior vena cava are normal in size. Aortobiiliac stent graft in place within the thrombosed distal abdomi nal aortic aneurysm. No evidence of leak or failure. No dissection. Miscellaneous: No ventral hernias. PELVIS: Genitourinary: Bladder wall thickness is normal. Miscellaneous: No inguinal hernias or adenopathy. Bones: No suspicious bony lesions. No vertebral body compression fractures. Multilevel degenerativ e disc disease and arthropathy noted in the lower lumbar spine without significant central stenosis. IMPRESSION: 1. Aortobiiliac stent graft without evidence of complication. 2. Cholelithiasis without evidence of acute cholecystitis by CT. 3. Stable bilateral adrenal adenomas, renal cysts, degenerative disc disease Reviewed by: Hadley Hernandez MD on 04/03/2021 5:06 PM [place] Approved by: Hadley Hernandez MD on 04/03/2021 5:06 PM AKST Station ID: [id number]
[2021-04-03 18:34] VITALS: BP 135/78
== END 2021-04-03 18:37 | disposition home or self-care (01) ==
LOC: ED 15:17
DX: R10.30 Lower abdominal pain, unspecified (principal); K59.4 Anal spasm; T47.2X5A Adverse effect of stimulant laxatives, initial encounter; I10 Essential (primary) hypertension; I48.91 Unspecified atrial fibrillation; Z79.01 Long term (current) use of anticoagulants
CPT/HCPCS: 36415; 74177; 80053; 83690; 85025; 99282; 99284; Q9967

== ENCOUNTER 2021-04-19 10:21 | Day surgery (SDC) | payer OTHER ==
[2021-04-19] MEDS ORDERED: LACTATED RINGERS 1,000 ML IV ONE ×2 (10:46→11:57)
--- NOTE | 2021-04-19 11:00 | ANESTHESIA ---
Pre-Anesthesia VS, & Labs - Diagnosis history of polyps - Procedure colonoscopy Vital Signs: Temp Pulse Resp BP Pulse Ox 36.4 C L 70 16 119/84 H 100 04/19/21 10:30 04/19/21 10:30 04/19/21 10:30 04/19/21 10:30 04/19/21 10:30 Height: 6 ft 6 in Weight (kg): 91.4 kg Body Mass Index: 23.3 BMI Classification: Healthy weight - NPO >8 hours Home Medications and Allergies Home Medications: Ambulatory Orders Apixaban [Eliquis] 5 mg PO DAILY 04/18/21 Furosemide [Lasix] 20 mg PO DAILY 04/18/21 Atorvastatin Calcium 80 mg PO DAILY 03/17/16 Carvedilol 3.125 mg PO DAILY 03/17/16 Lisinopril [Zestril] 5 mg PO DAILY 03/17/16 Apixaban [Eliquis] 5 mg PO DAILY 04/18/21 Furosemide [Lasix] 20 mg PO DAILY 04/18/21 Allergies/Adverse Reactions: Allergies Allergy/AdvReac Type Severity Reaction Status Date / Time codeine AdvReac Nausea Verified 04/03/21 15:25 Anes History & Medical History - Anesthetic History Anesthesia Complications: reports: No previous complications - Medical History Cardiovascular: reports: Hypertension, High cholesterol, Coronary artery disease, [place], Other Pulmonary: reports: Pneumonia Gastrointestinal: reports: Chronic constipation Urinary: reports: None Musculoskeletal: reports: Osteoarthritis Endocrine/Autoimmune: reports: None Skin: reports: Psoriasis Smoking Status: Never smoker History of Cancer?: No - Surgical History Cardiothoracic: reports: CABG, Pacemaker, AICD Orthopedic: reports: Other Exam General: Alert, Oriented x3 Dental: WNL Mallampati classification: II Thyromental Distance: greater than 6 cm Respiratory: Lungs clear Cardiovascular: Regular rate Plan Anesthesia Type: Total IV Consent for Procedure(s) Verified and Reviewed: Yes Code Status: Attempt Resuscitation ASA classification: 3-Severe systemic disease Is this case an emergency?: No
[2021-04-19] MEDS ORDERED: PROPOFOL 500 MG/50 ML 500 MG/50 ML VIAL ONE (11:02)
[2021-04-19 12:20] VITALS: BP 112/72
--- NOTE | 2021-04-19 15:24 | ANESTHESIA POST OP EVALUATION ---
Anesthesia Post Eval - Post Anesthesia Eval Vitals: Last Vital Signs Temp 36.2 C L 04/19/21 12:15 Pulse 70 04/19/21 12:15 Resp 14 04/19/21 12:15 BP 112/72 04/19/21 12:15 Pulse Ox 100 04/19/21 12:15 CV Function Including HR & BP: Stable Pain Control: Satisfactory Nausea & Vomiting: Negative Mental Status: Baseline Respiratory Status: Airway Patent Hydration Status: Satisfactory Anesthesia Complications: None
== END 2021-04-19 10:22 | disposition home or self-care (01) ==
LOC: SDS 10:21
PROVIDERS: ATTEND Surgery
PROC: 0DBE8ZX Excision of Large Intestine, Via Natural or Artificial Opening Endoscopic, Diagnostic (ICD-10-PCS; 2021-04-19)
PROC: 0DBN8ZZ Excision of Sigmoid Colon, Via Natural or Artificial Opening Endoscopic (ICD-10-PCS; 2021-04-19)
PROC: 0DBH8ZZ Excision of Cecum, Via Natural or Artificial Opening Endoscopic (ICD-10-PCS; 2021-04-19)
PROC: 0DBL8ZZ Excision of Transverse Colon, Via Natural or Artificial Opening Endoscopic (ICD-10-PCS; 2021-04-19)
PROC: 0DBK8ZZ Excision of Ascending Colon, Via Natural or Artificial Opening Endoscopic (ICD-10-PCS; principal; 2021-04-19 11:30)
DX: R19.4 Change in bowel habit (principal); D12.3 Benign neoplasm of transverse colon; D12.0 Benign neoplasm of cecum; D12.2 Benign neoplasm of ascending colon; D12.5 Benign neoplasm of sigmoid colon; K64.8 Other hemorrhoids; K64.4 Residual hemorrhoidal skin tags; K57.30 Diverticulosis of large intestine without perforation or abscess without bleeding; I25.5 Ischemic cardiomyopathy; I48.91 Unspecified atrial fibrillation; I25.2 Old myocardial infarction
CPT/HCPCS: 45380; 45385; 83630; 87015; 87177; 87209; 87272; 87329; 87493; J7120

== ENCOUNTER 2021-08-02 08:52 | Outpatient (CLI) | payer OTHER ==
[2021-08-02 09:12] LABS: BASOPHILS # (AUTO) 0.1 10^3/uL (0.0-0.1); EOSINOPHILS # (AUTO) 0.4 10^3/uL (0.0-0.7); EOSINOPHILS % (AUTO) 3.9 %; HCT - HEMATOCRIT 41.3 % (42.0-52.0); HGB - HEMOGLOBIN 14.2 g/dL (14.0-18.0); LYMPHOCYTES # (AUTO) 2.4 10^3/uL (1.5-3.5); LYMPHOCYTES % (AUTO) 23.2 %; MEAN CORPUSCULAR HEMOGLOBIN 35.2 pg (27.0-31.0); MEAN CORPUSCULAR HGB CONC 34.4 g/dL (32.0-36.0); MEAN CORPUSCULAR VOLUME 102.5 fL (80.0-94.0); MEAN PLATELET VOLUME 10.6 fL (7.4-11.4); MONOCYTES # (AUTO) 0.6 10^3/uL (0.0-1.0); NEUTROPHILS # (AUTO) 6.7 10^3/uL (1.5-6.6); NEUTROPHILS % (AUTO) 65.5 %; PLT - PLATELET COUNT 221 10^3/uL (130-450); RED BLOOD COUNT 4.03 10^6/uL (4.70-6.10); RED CELL DISTRIBUTION WIDTH 13.5 % (12.0-15.0); WHITE BLOOD COUNT 10.2 x10^3/uL (4.8-10.8)
[2021-08-02 09:13] LABS: BILIRUBIN,URINE NEGATIVE (NEGATIVE); GLUCOSE, URINE (UA) NEGATIVE (NEGATIVE); KETONES,URINE (UA) NEGATIVE (NEGATIVE); LEUKOCYTE ESTERASE, URINE NEGATIVE (NEGATIVE); NITRITE,URINE NEGATIVE (NEGATIVE); OCCULT BLOOD,URINE NEGATIVE (NEGATIVE); PROTEIN,URINE NEGATIVE (NEGATIVE); UROBILINOGEN,URINE 0.2 (NORMAL) E.U./dL (NORMAL)
[2021-08-02 09:14] LABS: CLARITY,URINE CLEAR (CLEAR)
[2021-08-02 09:20] LABS: RBC,URINE 0-5 /HPF (0-5); WBC,URINE 0-3 /HPF (0-3)
[2021-08-02 09:21] LABS: BACTERIA,URINE Few /HPF (None Seen); SQUAMOUS EPITHELIAL CELL,UR FEW Squamous (<= Few)
[2021-08-02 09:35] LABS: ALBUMIN 4.3 g/dL (3.2-5.5); ALBUMIN/GLOBULIN RATIO 1.5 (1.0-2.2); ALKALINE PHOSPHATASE 64 IU/L (42-121); ALT ALANINE AMINOTRANSFERASE 37 IU/L (10-60); AST ASPARTATE AMINOTRANSFERASE 28 IU/L (10-42); BUN - BLOOD UREA NITROGEN 18 mg/dL (6-20); CALCIUM 8.8 mg/dL (8.5-10.3); CARBON DIOXIDE - CO2 25 mmol/L (21-32); CHLORIDE 104 mmol/L (101-111); CHOL/HDL RATIO 3.3 (<5.0); CHOLESTEROL 138 mg/dL; CK- CREATINE KINASE 37 IU/L (22-269); CREATININE 1.1 mg/dL (0.6-1.2); GFR - MDRD 66 (>89); GLUCOSE 111 mg/dL (70-100); HDL CHOLESTEROL 42 mg/dL; LDL CHOLESTEROL,CALCULATED 82 mg/dL; POTASSIUM 4.5 mmol/L (3.5-5.0); SODIUM 138 mmol/L (135-145); TOTAL PROTEIN 7.1 g/dL (6.7-8.2); TRIGLYCERIDES 72 mg/dL; VLDL CHOLESTEROL 14 mg/dL
[2021-08-02 09:48] LABS: THYROID STIMULATING HORMONE 2.55 uIU/mL (0.34-5.60)
[2021-08-02 09:50] LABS: FREE T4 (FREE THYROXINE) 0.86 ng/dL (0.58-1.64)
== END 2021-08-02 08:53 | disposition home or self-care (01) ==
LOC: LAB 08:52
PROVIDERS: ATTEND Internal Medicine
DX: E02 Subclinical iodine-deficiency hypothyroidism (principal); R63.4 Abnormal weight loss; I48.91 Unspecified atrial fibrillation; I50.9 Heart failure, unspecified; I25.10 Atherosclerotic heart disease of native coronary artery without angina pectoris; R74.8 Abnormal levels of other serum enzymes; Z86.010 Personal history of colon polyps; E78.5 Hyperlipidemia, unspecified
CPT/HCPCS: 36415; 80053; 80061; 81001; 82550; 83721; 84153; 84439; 84443; 85025; 87086

== ENCOUNTER 2021-08-03 06:53 | Outpatient (CLI) | payer OTHER ==
--- NOTE | 2021-08-03 12:57 | XRAY Report ---
PROCEDURE: Abdomen Acute INDICATIONS: AAA S/EVAR TECHNIQUE: 4 views of the abdomen were acquired. COMPARISON: 07/17/2020 FINDINGS: Surgical changes and devices: Aortobiiliac stent graft material is present. Its appearance is stable compared to prior studies.. Abdomen: Bowel gas pattern is normal. No suspicious calcifications. Visualized solid organ contour s appear normal. Bones: No suspicious bony lesions. Mild degenerative change in the spine and both hip joints. IMPRESSION: 1. Stable position of aortobiiliac stent graft. 2. Otherwise normal abdominal radiographs. Reviewed by: Tiffanie Wing MD on 08/03/2021 12:56 PM PDT Approved by: Tiffanie Wing MD on 08/03/2021 12:56 PM PDT Station ID: [id number]
--- NOTE | 2021-08-03 21:11 | Ultrasound Report ---
PROCEDURE: Duplex Aorta Complete INDICATIONS: AAA TECHNIQUE: Color and pulse Doppler interrogation was performed of the aorta and iliac arterial systems, with miguel angel ge documentation. COMPARISON: None. FINDINGS: Aorta: 55 cm/sec, with biphasic flow. Right lower extremity: Proximal common iliac artery: 51cm/sec, with biphasic flow. Distal common iliac artery: 49 cm/sec, with biphasic flow. Proximal external iliac artery: 136 cm/sec, with triphasic flow. Distal external iliac artery: 106 cm/sec, with triphasic flow. Common femoral artery: 56 cm/sec, with triphasic flow. Nava-scale imaging description: Mild plaque Left lower extremity: Proximal common iliac artery: 47 cm/sec, with biphasic flow. Distal common iliac artery: 49 cm/sec, with biphasic flow. Proximal external iliac artery: 121 cm/sec, with triphasic flow. Distal external iliac artery: 102 cm/sec, with triphasic flow. Common femoral artery: 71 cm/sec, with triphasic flow. Nava-scale imaging description: Mild plaque IMPRESSION: No hemodynamically significant stenosis. Reviewed by: Kristin Best MD on 08/03/2021 9:09 PM PDT Approved by: Kristin Best MD on 08/03/2021 9:09 PM PDT Station ID: [id number]
== END 2021-08-03 06:54 | disposition home or self-care (01) ==
LOC: DI 06:53
PROVIDERS: ATTEND Surgery Vascular Surgery
DX: Z09 Encounter for follow-up examination after completed treatment for conditions other than malignant neoplasm (principal); Z86.79 Personal history of other diseases of the circulatory system; Z95.828 Presence of other vascular implants and grafts
CPT/HCPCS: 93978

== ENCOUNTER 2021-09-15 08:26 | Outpatient (CLI) | payer OTHER ==
[2021-09-15] MEDS ORDERED: DIATR MEGLU/DIATRIZOATE SODIUM 120 ML BOTTLE PO ONE (09:56)
--- NOTE | 2021-09-15 10:39 | CT Report ---
PROCEDURE: CHEST WO INDICATIONS: UNINTENTIONAL WEIGHT LOSS TECHNIQUE: Noncontrast 1mm axial images were acquired from the pulmonary apices to the posterior costophrenic an gles. Axial 5 mm soft tissue kernel reconstructions were performed as well as 8 mm axial MIP and cor onal and sagittal 5 mm reformations. For radiation dose reduction, the following was used: automate d exposure control, adjustment of mA and/or kV according to patient size. COMPARISON: None. FINDINGS: Image quality: Excellent. Images are denoted as (series #/image #). Medical devices: Left chest AICD. Lymph nodes: No evidence of thoracic lymphadenopathy however evaluation for mediastinal and hilar jamie nopathy is limited in the absence of intravenous contrast. Vasculature: Aorta and main pulmonary artery diameters are within normal range. Heart: No pericardial effusion. Multivessel coronary artery calcifications and/or stents. Lung parenchyma and pleura: Mild emphysema. No consolidation, pleural effusion or pneumothorax. 2 mm solid pulmonary nodule at the left upper lobe (3/63). Airways: Centrally patent. Chest wall/musculoskeletal: Prior median sternotomy. Multilevel degenerative change of the visualized spine. Visualized upper abdomen: Dictated separately in the report for CT of the abdomen and pelvis same day . IMPRESSION: 1. Mild emphysema. 2. A 2 mm pulmonary nodule is present at the left upper lobe. If the patient is considered low risk, no further imaging follow-up is necessary per Fleischner Society guidelines. If the patient is consid ered high risk, an optional twelve-month chest CT could be obtained for follow-up. 3. No obvious evidence of thoracic adenopathy on this noncontrast exam. 4. CT of the abdomen and pelvis performed the same day is dictated separately. Reviewed by: Mickey Stearns MD on 09/15/2021 10:37 AM PDT Approved by: Mickey Stearns MD on 09/15/2021 10:37 AM PDT Station ID: [id number]
--- NOTE | 2021-09-15 11:26 | CT Report ---
PROCEDURE: Abdomen/Pelvis WO INDICATIONS: UNINTENTIONAL WEIGHT LOSS TECHNIQUE: 5 mm thick sections acquired from the diaphragms to the symphysis without intravenous contrast. Oral contrast was administered. 5 mm coronal and sagittal reformats were then performed. For radiation do se reduction, the following was used: automated exposure control, adjustment of mA and/or kV accordi ng to patient size. COMPARISON: CT abdomen pelvis 04/03/2021, 06/27/2017. FINDINGS: Image quality: Excellent. Images are denoted as (series #/image #). Visualized lung bases: Dictated separately in the report for CT of the chest same day. Liver and biliary tree: Unremarkable noncontrast appearance. Gallbladder: Cholelithiasis present as before. Spleen: Unremarkable noncontrast appearance. Pancreas: Unremarkable noncontrast appearance. Adrenal glands: Bilateral adrenal adenomas redemonstrated. Kidneys and ureters: No hydronephrosis. Renal cortical cysts are present bilaterally as before withou t suspicious features visualized to necessitate imaging follow-up. Gastrointestinal tract: No bowel obstruction. Moderate predominantly sigmoid colonic diverticulosis w ithout evidence of acute diverticulitis. Peritoneal cavity: No free air or free fluid. Bladder: Unremarkable noncontrast appearance. Pelvic organs: Prostatomegaly. Vasculature: Redemonstrated abdominal aortic aneurysm status post aortobiiliac stent grafting. The st ent and vasculature are not well evaluated on this noncontrast exam. No obvious significant interval change since the most recent prior study. Lymph nodes: No highly suspicious lymph nodes identified. Musculoskeletal: Degenerative change of the spine. IMPRESSION: 1. No acute findings or significant interval change identified on this noncontrast study. 2. Cholelithiasis as before. 3. Colonic diverticulosis without evidence of acute diverticulitis. 4. CT of the chest performed the same day is dictated separately. Reviewed by: Mickey Stearns MD on 09/15/2021 11:24 AM PDT Approved by: Mickey Stearns MD on 09/15/2021 11:24 AM PDT Station ID: [id number]
== END 2021-09-15 08:27 | disposition home or self-care (01) ==
LOC: DI 08:26
PROVIDERS: ATTEND Nurse Practitioner Family
DX: J43.9 Emphysema, unspecified (principal); R91.1 Solitary pulmonary nodule; R63.4 Abnormal weight loss
CPT/HCPCS: 71250; 74176; Q9963

== ENCOUNTER 2021-10-17 11:22 | Outpatient (CLI) | payer OTHER | END 2021-10-17 23:59 | disposition home or self-care (01) | LOC: LAB.R 11:22 | PROVIDERS: ATTEND Internal Medicine | DX: R53.83 Other fatigue (principal) | CPT/HCPCS: 84403 ==

== ENCOUNTER 2021-12-07 09:15 | Emergency (ER) | payer OTHER ==
--- NOTE | 2021-12-07 10:22 | ED Physician Documentation ---
PD HPI ABD PAIN - Stated complaint Stated Complaint: MALE - Chief complaint Chief Complaint: Abd Pain - History obtained from History obtained from: Patient - History of Present Illness Timing - onset: How many days ago (several) Timing - duration: Days Timing - details: Gradual onset, Waxing and waning Quality: Cramping, Aching Location: Other (lower abd with feeling of rectal fullness.) Improved by: No: Eating Worsened by: No: Eating, Position Associated symptoms: Constipation. No: Fever, Nausea, Vomiting, Diarrhea, Hematochezia Similar symptoms before: Has not had sx before Recently seen: Not recently seen Review of Systems Constitutional: denies: Fever, Chills Nose: denies: Rhinorrhea / runny nose, Congestion Throat: denies: Sore throat Cardiac: denies: Chest pain / pressure Respiratory: denies: Cough GI: reports: Abdominal Pain, Constipation. denies: Abdominal Swelling, Nausea, Vomiting, Diarrhea : denies: Dysuria, Frequency Skin: denies: Rash, Lesions PD PAST MEDICAL HISTORY - Past Medical History Past Medical History: Yes Cardiovascular: Hypertension, High cholesterol, Coronary artery disease, [place], Other Respiratory: Pneumonia Neuro: None Endocrine/Autoimmune: None GI: Chronic constipation : None HEENT: None Psych: None Musculoskeletal: Osteoarthritis Derm: Psoriasis - Past Surgical History Past Surgical History: Yes Ortho: Other Cardiovascular: CABG, Pacemaker, AICD - Present Medications Home Medications: Ambulatory Orders Medication Instructions Recorded Confirmed Atorvastatin Calcium 80 mg PO DAILY 03/17/16 12/07/21 Carvedilol 6.25 mg PO BID 03/17/16 12/07/21 Lisinopril [Zestril] 5 mg PO DAILY 03/17/16 12/07/21 Apixaban [Eliquis] 5 mg PO DAILY 04/18/21 12/07/21 Hyoscyamine [Levsin] 0.125 mg SL Q6H PRN #30 tablet 04/19/21 12/07/21 Docusate Sodium 100Mg Capsule 100 mg PO DAILY #20 cap 12/07/21 [Colace 100Mg Capsule] Lactulose 10 gm PO BID PRN #300 ml 12/07/21 Spironolactone [Aldactone] 12.5 mg PO DAILY 12/07/21 12/07/21 - Allergies Allergies/Adverse Reactions: Allergies Allergy/AdvReac Type Severity Reaction Status Date / Time codeine AdvReac Nausea Verified 12/07/21 09:33 - Social History Does the pt smoke?: No Smoking Status: Never smoker Does the pt drink ETOH?: No Does the pt have substance abuse?: No PD ED PE NORMAL - Vitals Vital signs reviewed: Yes - General General: Alert and oriented X 3, Well developed/nourished - HEENT HEENT: Pharynx benign - Neck Neck: Supple, no meningeal sign, No adenopathy - Cardiac Cardiac: RRR, No murmur - Respiratory Respiratory: Clear bilaterally - Abdomen Abdomen: Normal bowel sounds, Soft, Non distended, No organomegaly, Other (some tenderness lower abd left more than right. No guarding nor rebound. ) - Male Male : Other (normal appearance) - Rectal Rectal: Other (minimal to no stool in vault. No impaction. ) - Back Back: No CVA TTP - Derm Derm: Normal color, Warm and dry - Neuro Neuro: Alert and oriented X 3, No motor deficit, Normal speech Results - Vitals Vitals: Oxygen O2 Source Room air - Labs Labs: Laboratory Tests 12/07/21 12/07/21 10:52 10:52 WBC 8.8 RBC 4.08 L Hgb 13.6 L Hct 40.2 L MCV 98.5 H MCH 33.3 H MCHC 33.8 RDW 13.9 Plt Count 184 MPV 11.1 Neut # (Auto) 5.6 Lymph # (Auto) 2.2 [place] # (Auto) 0.6 Eos # (Auto) 0.3 Baso # (Auto) 0.1 Absolute Nucleated RBC 0.00 Nucleated RBC % 0.0 Sodium 136 Potassium 5.1 H Chloride 104 Carbon Dioxide 27 Anion Gap 5.0 L BUN 15 Creatinine 1.3 H Estimated GFR (MDRD) 54 L Glucose 102 H Calcium 9.3 Total Bilirubin 0.6 AST 35 ALT 51 Alkaline Phosphatase 67 Total Protein 6.9 Albumin 4.2 Globulin 2.7 Albumin/Globulin Ratio 1.6 Lipase 33 PD MEDICAL DECISION MAKING - ED course Complexity details: re-evaluated patient (had reasonable stool output with enema and abd feeling better. He then declines CT scan. ), considered differential (consider constipation but would want to look for other causes of pain. ), d/w patient Departure - Departure Disposition: 01 Home, Self Care Clinical Impression: Bilateral lower abdominal cramping Constipation Qualifiers: Constipation type: unspecified constipation type Qualified Code(s): K59.00 - Constipation, unspecified Condition: Stable Record reviewed to determine appropriate education?: Yes Instructions: ED Constipation, ED Abdominal Pain Unkn Cause Male Follow-Up: Prema George MD [Primary Care Provider] - Prescriptions: Docusate Sodium 100Mg Capsule [Colace 100Mg Capsule] 100 mg PO DAILY #20 cap Lactulose 10 gm PO BID PRN #300 ml PRN Reason: Constipation Comments: Tylenol or ibuprofen if needed for pains or cramps. Try not to use the hyoscyamine at this point for cramps as it may cause constipation or augment it. We can try different laxative and stool softener with docusate 100 mg twice daily initially and then once daily after a few days. Also lactulose 15 to 30 mL twice daily to help with stool softening and movement. Recheck if not improving well over the next couple of days with better bowel movements and decreased cramps. Return if worse. I sent your prescriptions to [facility] pharmacy. Discharge Date/Time: 12/07/21 12:12
[2021-12-07] MEDS ORDERED: SOAP SUDS ENEMA 1 EACH RC ONE (10:35)
[2021-12-07] MEDS ORDERED: iohexoL-300 100 ML VIAL ONE (10:50)
[2021-12-07 10:59] LABS: BASOPHILS # (AUTO) 0.1 10^3/uL (0.0-0.1); BASOPHILS % (AUTO) 0.9 %; EOSINOPHILS # (AUTO) 0.3 10^3/uL (0.0-0.7); EOSINOPHILS % (AUTO) 3.7 %; HCT - HEMATOCRIT 40.2 % (42.0-52.0); HGB - HEMOGLOBIN 13.6 g/dL (14.0-18.0); LYMPHOCYTES # (AUTO) 2.2 10^3/uL (1.5-3.5); LYMPHOCYTES % (AUTO) 25.3 %; MEAN CORPUSCULAR HEMOGLOBIN 33.3 pg (27.0-31.0); MEAN CORPUSCULAR HGB CONC 33.8 g/dL (32.0-36.0); MEAN CORPUSCULAR VOLUME 98.5 fL (80.0-94.0); MEAN PLATELET VOLUME 11.1 fL (7.4-11.4); MONOCYTES # (AUTO) 0.6 10^3/uL (0.0-1.0); MONOCYTES % (AUTO) 6.5 %; NEUTROPHILS # (AUTO) 5.6 10^3/uL (1.5-6.6); NEUTROPHILS % (AUTO) 63.1 %; PLT - PLATELET COUNT 184 10^3/uL (130-450); RED BLOOD COUNT 4.08 10^6/uL (4.70-6.10); RED CELL DISTRIBUTION WIDTH 13.9 % (12.0-15.0); WHITE BLOOD COUNT 8.8 x10^3/uL (4.8-10.8)
[2021-12-07 11:13] LABS: ALBUMIN 4.2 g/dL (3.2-5.5); ALBUMIN/GLOBULIN RATIO 1.6 (1.0-2.2); BILIRUBIN,TOTAL 0.6 mg/dL (0.2-1.0); CALCIUM 9.3 mg/dL (8.5-10.3); CREATININE 1.3 mg/dL (0.6-1.2); POTASSIUM 5.1 mmol/L (3.5-5.0); TOTAL PROTEIN 6.9 g/dL (6.7-8.2)
[2021-12-07 12:54] VITALS: BP 112/74
== END 2021-12-07 12:12 | disposition home or self-care (01) ==
LOC: ED 09:15
DX: R10.32 Left lower quadrant pain (principal); R10.31 Right lower quadrant pain; K59.00 Constipation, unspecified
CPT/HCPCS: 36415; 80053; 83690; 85025; 99282; 99284; A9270

== ENCOUNTER 2021-12-10 11:33 | Emergency (ER) | payer OTHER ==
[2021-12-10 11:42] VITALS: BP 128/70
[2021-12-10] MEDS ORDERED: MINERAL OIL ENEMA 133 ML BOTTLE RC STA (11:57)
[2021-12-10] MEDS ORDERED: DIATR MEGLU/DIATRIZOATE SODIUM 120 ML BOTTLE PO ONE (12:00)
--- NOTE | 2021-12-10 12:00 | ED Physician Documentation ---
History of Present Illness - Stated complaint Stated Complaint: MALE GI - Chief complaint Chief Complaint: Abd Pain - History obtained from History obtained from: Patient - History of Present Illness Timing: Other (several weeks) Pain level max: 2 Pain level now: 2 - Additonal information Additional information: Patient is a 71-year-old male who states he has had constipation for the past several weeks. He was seen here a few days ago and given an enema which did produce a bowel movement, but he states he has not had a bowel movement since and still feels constipated. He tried lactulose without relief at home. He had a normal CT scan back in August. He states he also had a normal colonoscopy in August as well. The patient states that the colonoscopy was normal. On review of his colonoscopy, this was actually in April. He had several polyps and had a polypectomy. He also had severe diverticulosis. He had internal hemorrhoids as well. Review of Systems Constitutional: denies: Fever, Chills Respiratory: denies: Cough GI: denies: Nausea, Diarrhea, Hematemesis, Bloody / black stool : denies: Dysuria Skin: denies: Rash Musculoskeletal: denies: Neck pain, Back pain Neurologic: denies: Headache PD PAST MEDICAL HISTORY - Past Medical History Cardiovascular: Hypertension, High cholesterol, Coronary artery disease, [place], Other Respiratory: Pneumonia Neuro: None Endocrine/Autoimmune: None GI: Chronic constipation : None HEENT: None Psych: None Musculoskeletal: Osteoarthritis Derm: Psoriasis - Past Surgical History Past Surgical History: Yes Ortho: Other Cardiovascular: CABG, Pacemaker, AICD - Present Medications Home Medications: Ambulatory Orders Medication Instructions Recorded Confirmed Atorvastatin Calcium 80 mg PO DAILY 03/17/16 12/07/21 Carvedilol 6.25 mg PO BID 03/17/16 12/07/21 Lisinopril [Zestril] 5 mg PO DAILY 03/17/16 12/07/21 Apixaban [Eliquis] 5 mg PO DAILY 04/18/21 12/07/21 Hyoscyamine [Levsin] 0.125 mg SL Q6H PRN #30 tablet 04/19/21 12/07/21 Docusate Sodium 100Mg Capsule 100 mg PO DAILY #20 cap 12/07/21 [Colace 100Mg Capsule] Lactulose 10 gm PO BID PRN #300 ml 12/07/21 Spironolactone [Aldactone] 12.5 mg PO DAILY 12/07/21 12/07/21 polyethylene glycoL 3350 [Miralax] 17 gm PO DAILY PRN #1 each 12/10/21 - Allergies Allergies/Adverse Reactions: Allergies Allergy/AdvReac Type Severity Reaction Status Date / Time codeine AdvReac Nausea Verified 12/10/21 11:43 - Social History Does the pt smoke?: No Smoking Status: Never smoker Does the pt drink ETOH?: No Does the pt have substance abuse?: No PD ED PE NORMAL - Vitals Vital signs reviewed: Yes - General General: Alert and oriented X 3, No acute distress, Well developed/nourished - HEENT HEENT: PERRL, Moist mucous membranes - Neck Neck: Supple, no meningeal sign - Cardiac Cardiac: RRR, Strong equal pulses - Respiratory Respiratory: No respiratory distress, Clear bilaterally - Abdomen Abdomen: Soft, Non tender, Non distended - Derm Derm: Warm and dry - Extremities Extremities: No edema - Neuro Neuro: Alert and oriented X 3 - Psych Psych: Normal mood, Normal affect Results - Vitals Vitals: Vital Signs - 24 hr 12/10/21 11:40 Temperature 36.3 C L Heart Rate 68 Respiratory 16 Rate Blood Pressure 128/70 O2 Saturation 99 Oxygen O2 Source Room air PD MEDICAL DECISION MAKING - ED course Complexity details: re-evaluated patient, considered differential, d/w patient ED course: Patient is a 71-year-old male who presents with constipation. Upon further history with the patient this is been ongoing for approximately a year. This is actually the reason for the colonoscopy back in April. He was given a mineral oil enema and had a bowel movement. Feels better. Was also given Gastrografin orally which should help with the constipation. Recommend that he follow-up with his doctor for further care. Patient is requesting to go home at this time. Patient counseled regarding signs and symptoms for which I believe and urgent re-evaluation would be necessary. Patient with good understanding of and agreement to plan and is comfortable going home at this time This document was made in part using voice recognition software. While efforts are made to proofread this document, sound alike and grammatical errors may occur. Departure - Departure Disposition: Home, Self Care Clinical Impression: Constipation Qualifiers: Constipation type: unspecified constipation type Qualified Code(s): K59.00 - Constipation, unspecified Condition: Good Instructions: ED Constipation Follow-Up: your,doctor in 1 week [Other] Prescriptions: polyethylene glycoL 3350 [Miralax] 17 gm PO DAILY PRN #1 each PRN Reason: Constipation Comments: Please make sure you are drinking plenty of water at home. Please return if you worsen. Please follow-up with your doctor for further care. Discharge Date/Time: 12/10/21 14:00
[2021-12-10] MEDS ORDERED: DIATRIZOATE MEGLU/DIATRIZO SOD 30 ML BOTTLE PO ONE ×2 (12:10→13:00)
== END 2021-12-10 14:00 | disposition home or self-care (01) ==
LOC: ED 11:33
DX: K59.00 Constipation, unspecified (principal)
CPT/HCPCS: 99282; A9270; Q9963

== ENCOUNTER 2022-01-26 08:00 | Outpatient (CLI) | payer OTHER ==
[2022-01-26 16:36] LABS: RAPID STREP SCREEN Negative (Negative)
== END 2022-01-26 23:59 | disposition home or self-care (01) ==
LOC: LAB.R 08:00
PROVIDERS: ATTEND Internal Medicine
DX: J35.8 Other chronic diseases of tonsils and adenoids (principal); R09.82 Postnasal drip
CPT/HCPCS: 87070; 87430

== ENCOUNTER 2022-05-13 12:51 | Emergency (ER) | payer OTHER ==
[2022-05-13 13:13] VITALS: BP 111/69
--- NOTE | 2022-05-13 13:23 | ED Physician Documentation ---
History of Present Illness - Stated complaint Stated Complaint: MALE - Chief complaint Chief Complaint: General - History obtained from History obtained from: Patient (71-year-old gentleman with recurrent fecal impactions of unclear etiology despite negative colonoscopy. Last BM was 3 days ago and despite taking oral MiraLAX and high-fiber diet and drinking plenty of water feels like there is a ball in his rectum.) PD PAST MEDICAL HISTORY - Past Medical History Cardiovascular: Hypertension, High cholesterol, Coronary artery disease, [place], Other Respiratory: Pneumonia Neuro: None Endocrine/Autoimmune: None GI: Chronic constipation, Other : None HEENT: None Psych: None Musculoskeletal: Osteoarthritis Derm: Psoriasis - Past Surgical History Past Surgical History: Yes Ortho: Other Cardiovascular: CABG, Pacemaker, AICD - Present Medications Home Medications: Ambulatory Orders Medication Instructions Recorded Confirmed Atorvastatin Calcium 80 mg PO DAILY 03/17/16 03/01/22 Carvedilol 6.25 mg PO BID 03/17/16 03/01/22 Lisinopril [Zestril] 5 mg PO DAILY 03/17/16 02/28/22 Apixaban [Eliquis] 5 mg PO BID 04/18/21 02/28/22 Spironolactone [Aldactone] 12.5 mg PO DAILY 12/07/21 02/28/22 Aspirin [[place] Aspirin] 81 mg PO DAILY 02/28/22 03/01/22 Ezetimibe [Zetia] 10 mg PO QD 02/28/22 02/28/22 - Allergies Allergies/Adverse Reactions: Allergies Allergy/AdvReac Type Severity Reaction Status Date / Time codeine AdvReac Nausea Verified 05/13/22 13:13 - Social History Does the pt smoke?: No Smoking Status: Never smoker Does the pt drink ETOH?: No Does the pt have substance abuse?: No PD ED PE NORMAL - Vitals Vital signs reviewed: Yes - General General: Alert and oriented X 3, No acute distress - Abdomen Abdomen: Normal bowel sounds, Soft, Non tender - Rectal Rectal: Other (No fecal impaction within fingers reach. Enema placed during ex am.) - Neuro Neuro: Alert and oriented X 3, Normal speech Results - Vitals Vitals: Vital Signs - 24 hr 05/13/22 13:10 Temperature 37.1 C Heart Rate 69 Respiratory 15 Rate Blood Pressure 111/69 O2 Saturation 100 Oxygen O2 Source Room air PD Medical Decision Making - ED course ED course: 71-year-old gentleman with recurrent fecal impaction. Did have output here after an enema. He specifically requested Gastrografin subsequently as he has had further good success with that. Departure - Departure Disposition: 01 Home, Self Care Clinical Impression: Fecal impaction Condition: Good Record reviewed to determine appropriate education?: Yes Instructions: ED Impaction Fecal Treated Comments: Call your doctor to arrange a follow-up appointment, make the next available appointment. In the interim, return anytime if worse or if new symptoms develop.
[2022-05-13] MEDS ORDERED: DIATR MEGLU/DIATRIZOATE SODIUM 120 ML BOTTLE PO ONE (13:52)
[2022-05-13] MEDS ORDERED: DIATR MEGLU/DIATRIZOATE SODIUM 120 ML BOTTLE ONE (14:04)
== END 2022-05-13 14:15 | disposition home or self-care (01) ==
LOC: ED 12:51
DX: K56.41 Fecal impaction (principal)
CPT/HCPCS: 99281; 99283; Q9963

== ENCOUNTER 2022-05-16 12:43 | Emergency (ER) | payer OTHER ==
[2022-05-16 12:57] VITALS: BP 108/72
--- NOTE | 2022-05-16 13:11 | ED Physician Documentation ---
History of Present Illness - Stated complaint Stated Complaint: CONSTIPATION - Chief complaint Chief Complaint: General - History obtained from History obtained from: Patient - History of Present Illness Pain level max: 0 Pain level now: 0 - Additonal information Additional information: 71-year-old male presents the emergency department with ongoing constipation. This has been an issue for at least the last year. He has not had a colonoscopy since last April. He has not followed up with GI. He states that he did see his doctor wants, they gave him lactulose but feels like it did not help. He states that he never followed up with his doctor. No nausea or vomiting. No abdominal pain. No fevers. No blood in the stool. Patient is here requesting a dose of Gastrografin as this is worked in the past. Review of Systems Constitutional: denies: Fever, Chills PD PAST MEDICAL HISTORY - Past Medical History Cardiovascular: Hypertension, High cholesterol, Coronary artery disease, [place], Other Respiratory: Pneumonia Neuro: None Endocrine/Autoimmune: None GI: Chronic constipation, Other : None HEENT: None Psych: None Musculoskeletal: Osteoarthritis Derm: Psoriasis - Past Surgical History Past Surgical History: Yes Ortho: Other Cardiovascular: CABG, Pacemaker, AICD - Present Medications Home Medications: Ambulatory Orders Medication Instructions Recorded Confirmed Atorvastatin Calcium 80 mg PO DAILY 03/17/16 03/01/22 Carvedilol 6.25 mg PO BID 03/17/16 03/01/22 Lisinopril [Zestril] 5 mg PO DAILY 03/17/16 02/28/22 Apixaban [Eliquis] 5 mg PO BID 04/18/21 02/28/22 Spironolactone [Aldactone] 12.5 mg PO DAILY 12/07/21 02/28/22 Aspirin [[place] Aspirin] 81 mg PO DAILY 02/28/22 03/01/22 Ezetimibe [Zetia] 10 mg PO QD 02/28/22 02/28/22 - Allergies Allergies/Adverse Reactions: Allergies Allergy/AdvReac Type Severity Reaction Status Date / Time codeine AdvReac Nausea Verified 05/16/22 12:53 - Social History Does the pt smoke?: No Smoking Status: Never smoker Does the pt drink ETOH?: No Does the pt have substance abuse?: No PD ED PE NORMAL - Vitals Vital signs reviewed: Yes - General General: Alert and oriented X 3, No acute distress - HEENT HEENT: Moist mucous membranes - Neck Neck: Supple, no meningeal sign - Cardiac Cardiac: RRR - Respiratory Respiratory: No respiratory distress, Clear bilaterally - Abdomen Abdomen: Soft, Non tender, Non distended - Derm Derm: Warm and dry - Neuro Neuro: Alert and oriented X 3 - Psych Psych: Normal mood, Normal affect Results - Vitals Vitals: Vital Signs - 24 hr 05/16/22 05/16/22 12:53 13:06 Temperature 36 C L Heart Rate 69 Respiratory 16 15 Rate Blood Pressure 108/72 O2 Saturation 99 Oxygen O2 Source Room air PD Medical Decision Making - ED course Complexity details: reviewed results, re-evaluated patient, considered differential, d/w patient ED course: Patient was given a dose of Gastrografin orally. We will have him follow-up with his doctor for further work-up of his ongoing constipation. No indication for emergent labs or imaging. Abdomen soft, nontender nondistended. No evidence of obstruction. Patient counseled regarding signs and symptoms for which I believe and urgent re-evaluation would be necessary. Patient with good understanding of and agreement to plan and is comfortable going home at this time This document was made in part using voice recognition software. While efforts are made to proofread this document, sound alike and grammatical errors may occur. Departure - Departure Disposition: 01 Home, Self Care Clinical Impression: Constipation Qualifiers: Constipation type: unspecified constipation type Qualified Code(s): K59.00 - Constipation, unspecified Condition: Good Instructions: ED Constipation Follow-Up: Prema George MD [Primary Care Provider] - Within 1 week Comments: You were given Gastrografin today. You need to follow-up with your primary care provider, Dr. George, this week. This has been an issue for you for at least a year, you will need to see GI and have further work-up to determine why you are having issues with constipation at this time. Clearly this has not been improving with the treatments you have tried so far. Discharge Date/Time: 05/16/22 13:25
[2022-05-16] MEDS: DIATR MEGLU/DIATRIZOATE SODIUM 120 ML BOTTLE PO ONE (13:19)
[2022-05-16] MEDS ORDERED: DIATR MEGLU/DIATRIZOATE SODIUM 120 ML BOTTLE ONE (13:19)
== END 2022-05-16 13:25 | disposition home or self-care (01) ==
LOC: ED 12:43
DX: K59.00 Constipation, unspecified (principal)
CPT/HCPCS: 99282; 99283; Q9963

== ENCOUNTER 2022-05-30 13:52 | Emergency (ER) | payer OTHER ==
--- NOTE | 2022-05-30 14:31 | XRAY Report ---
PROCEDURE: Chest 1 View X-Ray INDICATIONS: Chest Pain TECHNIQUE: One view of the chest was acquired. COMPARISON: 09/15/2021 CT FINDINGS: Surgical changes and devices: Left chest wall pulse generator with biventricular dual chamber electr odes leads in place. Sternotomy wires. Lungs and pleura: Suspected emphysema. No airspace consolidation. No pleural effusions. Mediastinum: Mediastinal contours appear normal. Heart size is normal. Bones and chest wall: No suspicious bony lesions. Overlying soft tissues appear unremarkable. IMPRESSION: No acute radiographic abnormality. Suspected emphysema. Reviewed by: Avery Johnson MD on 05/30/2022 2:30 PM PDT Approved by: Avery Johnson MD on 05/30/2022 2:30 PM PDT Station ID: [id number]
[2022-05-30 14:36] LABS: BASOPHILS # (AUTO) 0.1 10^3/uL (0.0-0.1); EOSINOPHILS # (AUTO) 0.2 10^3/uL (0.0-0.7); HCT - HEMATOCRIT 45.1 % (42.0-52.0); HGB - HEMOGLOBIN 15.3 g/dL (14.0-18.0); LYMPHOCYTES # (AUTO) 2.2 10^3/uL (1.5-3.5); LYMPHOCYTES % (AUTO) 22.7 %; MEAN CORPUSCULAR HEMOGLOBIN 34.5 pg (27.0-31.0); MEAN CORPUSCULAR HGB CONC 33.9 g/dL (32.0-36.0); MEAN CORPUSCULAR VOLUME 101.6 fL (80.0-94.0); MONOCYTES # (AUTO) 0.5 10^3/uL (0.0-1.0); MONOCYTES % (AUTO) 5.4 %; NEUTROPHILS # (AUTO) 6.8 10^3/uL (1.5-6.6); NEUTROPHILS % (AUTO) 68.5 %; PLT - PLATELET COUNT 189 10^3/uL (130-450); RED BLOOD COUNT 4.44 10^6/uL (4.70-6.10); RED CELL DISTRIBUTION WIDTH 14.5 % (12.0-15.0); WHITE BLOOD COUNT 9.9 x10^3/uL (4.8-10.8)
--- NOTE | 2022-05-30 14:40 | ED Physician Documentation ---
PD HPI CHEST PAIN - Stated complaint Stated Complaint: SOA, HEART PROBLEMS - Chief complaint Chief Complaint: Cardiac - History obtained from History obtained from: Patient - History of Present Illness Timing - onset: Yesterday Timing - onset during: Light activity, Other (feeling weak and tired, some dyspnea. has had ongoing intermittent sharp chest pain due to AICD wires rubbing rib as he has lost weight. Has appt with early breastfeeding care specialist and to get chest CT.) Quality: Tightness Location: Substernal Radiation: No: Neck, Back Worsened by: No: Inspiration, Movement Associated symptoms: Shortness of air. No: Nausea, Feeling faint / dizzy, Palpitations, Cough Similar symptoms before: Diagnosis (has had prior KS and is concerned about that mostly.) Review of Systems Constitutional: denies: Fever, Chills, Myalgias Nose: denies: Rhinorrhea / runny nose, Congestion Throat: denies: Sore throat Cardiac: reports: Chest pain / pressure (tightness in chest in addition to ongoing intermittent sharp pain with movement from AICD wire rubbing. Has had AICD for few years but he has lost weight lately and wire has started rubbing with certain movements. Appt to see [facility] [employer] and to get chest imaging per patient.). denies: Palpitations, Pedal edema, Calf pain Respiratory: reports: Dyspnea. denies: Cough Neurologic: denies: Focal weakness, Numbness, Near syncope Endocrine: reports: Weight loss (without apparent cause over the past 5-6 months.) PD PAST MEDICAL HISTORY - Past Medical History Cardiovascular: Hypertension, High cholesterol, Coronary artery disease, [place], [place] Respiratory: Pneumonia Neuro: None Endocrine/Autoimmune: None GI: Chronic constipation, Other : None HEENT: None Psych: None Musculoskeletal: Osteoarthritis Derm: Psoriasis - Past Surgical History Past Surgical History: Yes Ortho: Other Cardiovascular: CABG, Pacemaker, AICD - Present Medications Home Medications: Ambulatory Orders Medication Instructions Recorded Confirmed Atorvastatin Calcium 80 mg PO DAILY 03/17/16 05/30/22 Carvedilol 6.25 mg PO BID 03/17/16 05/30/22 Apixaban [Eliquis] 5 mg PO BID 04/18/21 05/30/22 Spironolactone [Aldactone] 12.5 mg PO DAILY 12/07/21 05/30/22 Aspirin [[place] Aspirin] 81 mg PO DAILY 02/28/22 05/30/22 Ezetimibe [Zetia] 10 mg PO QD 02/28/22 05/30/22 lisinopriL [Zestril] 2.5 mg PO DAILY 05/30/22 05/30/22 - Allergies Allergies/Adverse Reactions: Allergies Allergy/AdvReac Type Severity Reaction Status Date / Time codeine AdvReac Nausea Verified 05/30/22 14:02 - Social History Does the pt smoke?: No Smoking Status: Never smoker Does the pt drink ETOH?: No Does the pt have substance abuse?: No PD ED PE NORMAL - Vitals Vital signs reviewed: Yes - General General: Alert and oriented X 3, Well developed/nourished, Other (somewhat anxious) - Neck Neck: Supple, no meningeal sign, No adenopathy - Cardiac Cardiac: RRR, No murmur - Respiratory Respiratory: Clear bilaterally, Other (left chestwall showing AICD prominent on chestwall. Small amount of chestwall muscle. ) - Derm Derm: Normal color, Warm and dry - Extremities Extremities: No edema, No calf tenderness / cord - Neuro Neuro: Alert and oriented X 3, No motor deficit, Normal speech Results - Vitals Vitals: Vital Signs - 24 hr 05/30/22 05/30/22 05/30/22 13:57 14:49 14:53 Temperature 35.9 C L Heart Rate 71 70 65 Respiratory 14 18 19 Rate Blood Pressure 107/79 114/87 H 114/87 H O2 Saturation 100 100 100 05/30/22 15:19 Temperature Heart Rate 70 Respiratory 12 Rate Blood Pressure 120/77 O2 Saturation 100 Oxygen O2 Source Room air - EKG (time done) 13:58 EKG releavant findings:: EKG personally interpreted by author of this note. Relevant findings are: Rate: Rate (enter#) (70) Rhythm: Paced Intervals: Wide QRS Ischemia: Non specific changes - Labs Labs: Laboratory Tests 05/30/22 05/30/22 05/30/22 14:31 14:31 14:31 WBC 9.9 RBC 4.44 L Hgb 15.3 Hct 45.1 MCV 101.6 H MCH 34.5 H MCHC 33.9 RDW 14.5 Plt Count 189 MPV 12.0 H Neut # (Auto) 6.8 H Lymph # (Auto) 2.2 [place] # (Auto) 0.5 Eos # (Auto) 0.2 Baso # (Auto) 0.1 Absolute Nucleated RBC 0.00 Nucleated RBC % 0.0 Sodium 139 Potassium 4.5 Chloride 104 Carbon Dioxide 25 Anion Gap 10.0 BUN 17 Creatinine 1.1 Estimated GFR (MDRD) 66 L Glucose 124 H Calcium 9.2 Total Bilirubin 1.2 H AST 25 ALT 24 Alkaline Phosphatase 71 Troponin I High Sens 10.0 B-Natriuretic Peptide Total Protein 7.4 Albumin 4.8 Globulin 2.6 Albumin/Globulin Ratio 1.8 Lipase 35 TSH 05/30/22 05/30/22 14:31 14:31 WBC RBC Hgb Hct MCV MCH MCHC RDW Plt Count MPV Neut # (Auto) Lymph # (Auto) [place] # (Auto) Eos # (Auto) Baso # (Auto) Absolute Nucleated RBC Nucleated RBC % Sodium Potassium Chloride Carbon Dioxide Anion Gap BUN Creatinine Estimated GFR (MDRD) Glucose Calcium Total Bilirubin AST ALT Alkaline Phosphatase Troponin I High Sens B-Natriuretic Peptide 108 H Total Protein Albumin Globulin Albumin/Globulin Ratio Lipase TSH 5.82 H - Rads (name of study) chest xray Relevant Findings:: Prelim report reviewed (no acute abnormalities, suspect emphysema. ), EMP independent interpretation of test (no infiltrates nor congestion. ), See rad report PD Medical Decision Making - ED course Complexity details: reviewed results (troponin and BNP ordered toe richard for KS?CHF and both are negative. CXR to eliminate pneumonida, CHF, PTX and is normal. ECG showing paced with good capture. ), considered differential (no wheezing here but does have dyspnea and CXR shows hyperinflated lungs. Consider use of MDI to help with breathing. No signs of CHF/[place] nor acute lung process. ), d/w patient Departure - Departure Disposition: 01 Home, Self Care Clinical Impression: Dyspnea, Easy fatigability, Weight loss, AICD (automatic cardioverter/defibrillator) present Condition: Stable Record reviewed to determine appropriate education?: Yes Follow-Up: Prema George MD [Primary Care Provider] - Comments: Your chest x-ray is clear without any signs of heart failure or pneumonia. The lung size is a little bit enlarged which could suggest possible asthma or emphysema. Consideration could be use of an inhaler before activities and see if that improves your endurance and lessen the fatigue. Discussed that with your primary care. Your EKG shows a paced rhythm with good capture. Your chest blood tests are normal without any signs of heart failure nor heart muscle injury/heart attack. Your blood count is normal. Your basic electrolytes and kidney function are okay as well. Discharge Date/Time: 05/30/22 15:21
[2022-05-30 14:49] LABS: ALBUMIN 4.8 g/dL (3.2-5.5); ALBUMIN/GLOBULIN RATIO 1.8 (1.0-2.2); BILIRUBIN,TOTAL 1.2 mg/dL (0.2-1.0); CALCIUM 9.2 mg/dL (8.5-10.3); CREATININE 1.1 mg/dL (0.6-1.2); POTASSIUM 4.5 mmol/L (3.5-5.0); TOTAL PROTEIN 7.4 g/dL (6.7-8.2)
[2022-05-30 15:21] VITALS: BP 120/77
== END 2022-05-30 15:21 | disposition home or self-care (01) ==
LOC: ED 13:52
DX: R06.00 Dyspnea, unspecified (principal); R53.83 Other fatigue; Z95.810 Presence of automatic (implantable) cardiac defibrillator; I10 Essential (primary) hypertension; E78.00 Pure hypercholesterolemia, unspecified; I25.10 Atherosclerotic heart disease of native coronary artery without angina pectoris; I25.2 Old myocardial infarction; Z79.01 Long term (current) use of anticoagulants; Z79.899 Other long term (current) drug therapy; Z79.82 Long term (current) use of aspirin
CPT/HCPCS: 36415; 80053; 83690; 83880; 84443; 84484; 85025; 93005; 99284

== ENCOUNTER 2022-07-05 11:54 | Outpatient (CLI) | payer OTHER ==
[2022-07-05 12:24] LABS: ALBUMIN 3.9 g/dL (3.2-5.5); ALBUMIN/GLOBULIN RATIO 1.4 (1.0-2.2); BILIRUBIN,TOTAL 0.8 mg/dL (0.2-1.0); CALCIUM 8.4 mg/dL (8.5-10.3); CREATININE 0.9 mg/dL (0.6-1.2); POTASSIUM 4.3 mmol/L (3.5-5.0); TOTAL PROTEIN 6.6 g/dL (6.7-8.2)
== END 2022-07-05 11:55 | disposition home or self-care (01) ==
LOC: LAB 11:54
PROVIDERS: ATTEND Internal Medicine Cardiovascular Disease
DX: I50.22 Chronic systolic (congestive) heart failure (principal)
CPT/HCPCS: 36415; 80053

== ENCOUNTER 2022-07-15 09:44 | Outpatient (CLI) | payer OTHER ==
--- NOTE | 2022-07-15 19:48 | CT Report ---
PROCEDURE: ABDOMEN/PELVIS WO INDICATIONS: AAA SP EVAR TECHNIQUE: Noncontrast 5 mm thick sections acquired from the diaphragms to the symphysis. 5 mm coronal and sagi ttal reformats were then performed. For radiation dose reduction, the following was used: automated exposure control, adjustment of mA and/or kV according to patient size. COMPARISON: 09/07/2021 FINDINGS: Image quality: Excellent. Lung bases and heart: Clear lungs. Pacemaker leads in the heart. Liver: No solid mass. Gallbladder and biliary tree: Dependent calcified small gallstones. No wall thickening. No biliary di latation. Spleen: No splenomegaly. Pancreas: Normal. Adrenals: Bilateral diffuse low-density thickening, stable. Kidneys and ureters: Numerous left renal cysts and a few right renal cysts. No hydronephrosis. Bowel and peritoneum: No bowel distension. No pathologic free fluid. Lymph nodes: No central or retroperitoneal adenopathy. Vessels: Endovascular infrarenal aortobiiliac stent graft in place and abdominal aortic aneurysm sac measures 3.2 x 4.6 cm, stable. No periaortic inflammation or fluid collection. The IVC is patent. PELVIS Reproductive organs: Moderate prostatomegaly. Bladder: No abnormal wall thickening, accounting for underdistension. Pelvic lymph nodes: No pelvic adenopathy by size criteria. Bones: Severe degenerative change L5-S1. Other: No significant ventral or inguinal hernia. IMPRESSION: 1. Stable size of abdominal aortic aneurysm sac post endovascular graft placement. 2. Cholelithiasis. 3. Renal cysts. 4. Prostatomegaly. Reviewed by: Tiffanie Wing MD on 07/15/2022 6:46 PM LUIS ENRIQUE Approved by: Tiffanie Wing MD on 07/15/2022 6:46 PM AKDT Station ID: [id number]
== END 2022-07-15 09:45 | disposition home or self-care (01) ==
LOC: DI 09:44
PROVIDERS: ATTEND Surgery Vascular Surgery
DX: I71.40 Abdominal aortic aneurysm, without rupture, unspecified (principal); K80.20 Calculus of gallbladder without cholecystitis without obstruction; N28.1 Cyst of kidney, acquired; N40.0 Benign prostatic hyperplasia without lower urinary tract symptoms

== ENCOUNTER 2022-07-25 12:58 | Outpatient (CLI) | payer OTHER ==
--- NOTE | 2022-07-25 18:22 | CT Report ---
PROCEDURE: CHEST WO INDICATIONS: LUNG NODULE TECHNIQUE: Noncontrast 1mm axial images were acquired from the pulmonary apices to the posterior costophrenic an gles. Axial 5 mm soft tissue kernel reconstructions were performed as well as 8 mm axial MIP and cor onal and sagittal 5 mm reformations. For radiation dose reduction, the following was used: automate d exposure control, adjustment of mA and/or kV according to patient size. COMPARISON: 09/07/2021 FINDINGS: Image quality: Diagnostic. Lungs and pleura: Evaluation of lung bases limited by respiratory motion artifact. Stable 2 mm left u pper lobe pulmonary nodule (image 81/series 4). No consolidation. No pleural effusions. No pneumotho rax. No new suspicious pulmonary nodules which require follow up. Redemonstration of upper lobe predo minant pulmonary emphysema. No septal thickening or nodularity Mediastinum: Heart size is normal. No pericardial effusion. No large vessel abnormality. No mediastin al adenopathy by size criteria. Median sternotomy wires are intact. No substernal fluid collection. Moderate atherosclerotic calcifications of the coronary arteries. Chest wall and lower neck: Thyroid is unremarkable. No axillary or supraclavicular adenopathy by size . Left-sided cardiac pacer device is in place. Bones: No aggressive osseous abnormality. No acute compression fracture. Upper Abdomen: Partially imaged presumed abdominal aortobifemoral stent graft. Stable appearance of m ultiple left renal cysts. IMPRESSION: 1. CT chest without acute cardiopulmonary abnormalities. 2. Stable appearance of mild upper lobe predominant pulmonary emphysema. 3. Stable appearance of 2 mm left upper lobe pulmonary nodule. No new suspicious or enlarging pulmona ry nodules. 4. Moderate atherosclerotic vascular calcifications. Reviewed by: Israel Stratton MD on 07/25/2022 6:21 PM PDT Approved by: Israel Stratton MD on 07/25/2022 6:21 PM PDT Station ID: [id number]
== END 2022-07-25 12:59 | disposition home or self-care (01) ==
LOC: DI 12:58
PROVIDERS: ATTEND Internal Medicine
DX: R91.1 Solitary pulmonary nodule (principal); J43.9 Emphysema, unspecified; I25.10 Atherosclerotic heart disease of native coronary artery without angina pectoris

== ENCOUNTER 2022-08-31 16:22 | Outpatient (CLI) | payer OTHER ==
[2022-08-31 16:44] LABS: BASOPHILS # (AUTO) 0.1 10^3/uL (0.0-0.1); EOSINOPHILS # (AUTO) 0.4 10^3/uL (0.0-0.7); EOSINOPHILS % (AUTO) 5.1 %; HCT - HEMATOCRIT 39.6 % (42.0-52.0); HGB - HEMOGLOBIN 13.5 g/dL (14.0-18.0); LYMPHOCYTES # (AUTO) 2.1 10^3/uL (1.5-3.5); LYMPHOCYTES % (AUTO) 25.1 %; MEAN CORPUSCULAR HEMOGLOBIN 34.2 pg (27.0-31.0); MEAN CORPUSCULAR HGB CONC 34.1 g/dL (32.0-36.0); MEAN CORPUSCULAR VOLUME 100.3 fL (80.0-94.0); MEAN PLATELET VOLUME 10.5 fL (7.4-11.4); MONOCYTES # (AUTO) 0.6 10^3/uL (0.0-1.0); MONOCYTES % (AUTO) 7.6 %; PLT - PLATELET COUNT 168 10^3/uL (130-450); RED BLOOD COUNT 3.95 10^6/uL (4.70-6.10); RED CELL DISTRIBUTION WIDTH 14.1 % (12.0-15.0); WHITE BLOOD COUNT 8.3 x10^3/uL (4.8-10.8)
[2022-08-31 17:01] LABS: ALBUMIN 4.1 g/dL (3.2-5.5); ALBUMIN/GLOBULIN RATIO 1.4 (1.0-2.2); ALKALINE PHOSPHATASE 64 IU/L (42-121); ALT ALANINE AMINOTRANSFERASE 18 IU/L (10-60); AST ASPARTATE AMINOTRANSFERASE 17 IU/L (10-42); BILIRUBIN,TOTAL 1.3 mg/dL (0.2-1.0); BUN - BLOOD UREA NITROGEN 19 mg/dL (6-20); CALCIUM 8.7 mg/dL (8.5-10.3); CARBON DIOXIDE - CO2 26 mmol/L (21-32); CHLORIDE 106 mmol/L (101-111); CHOL/HDL RATIO 2.6 (<5.0); CHOLESTEROL 116 mg/dL; CREATININE 1.2 mg/dL (0.6-1.2); GFR - MDRD 59 (>89); GLUCOSE 111 mg/dL (70-100); HDL CHOLESTEROL 45 mg/dL; LDL CHOLESTEROL,CALCULATED 54 mg/dL; LDL/HDL RATIO 1.2 (<3.6); POTASSIUM 4.3 mmol/L (3.5-5.0); SODIUM 139 mmol/L (135-145); TOTAL PROTEIN 7.1 g/dL (6.7-8.2); TRIGLYCERIDES 87 mg/dL; VLDL CHOLESTEROL 17 mg/dL
[2022-08-31 17:13] LABS: THYROID STIMULATING HORMONE 2.73 uIU/mL (0.34-5.60)
[2022-08-31 17:15] LABS: FREE T4 (FREE THYROXINE) 0.91 ng/dL (0.58-1.64)
[2022-08-31 17:24] LABS: FOLATE 18.64 ng/mL (5.90 - >24.8)
[2022-08-31 20:22] LABS: ESTIMATED AVERAGE GLUCOSE 117 mg/dL (70-100); HEMOGLOBIN A1c% 5.7 % (4.27-6.07)
== END 2022-08-31 16:23 | disposition home or self-care (01) ==
LOC: LAB 16:22
PROVIDERS: ATTEND Internal Medicine
DX: Z79.899 Other long term (current) drug therapy (principal); D75.89 Other specified diseases of blood and blood-forming organs; R73.01 Impaired fasting glucose; E78.5 Hyperlipidemia, unspecified; I48.91 Unspecified atrial fibrillation; E02 Subclinical iodine-deficiency hypothyroidism; L40.9 Psoriasis, unspecified
CPT/HCPCS: 36415; 80053; 80061; 82306; 82607; 82746; 83036; 83721; 84153; 84439; 84443; 85025

== ENCOUNTER 2022-10-23 08:49 | Outpatient (CLI) | payer OTHER ==
[2022-10-23 09:11] LABS: BASOPHILS # (AUTO) 0.1 10^3/uL (0.0-0.1); BASOPHILS % (AUTO) 0.9 %; EOSINOPHILS # (AUTO) 0.6 10^3/uL (0.0-0.7); EOSINOPHILS % (AUTO) 5.4 %; HCT - HEMATOCRIT 38.9 % (42.0-52.0); HGB - HEMOGLOBIN 12.9 g/dL (14.0-18.0); LYMPHOCYTES % (AUTO) 18.8 %; MEAN CORPUSCULAR HEMOGLOBIN 34.2 pg (27.0-31.0); MEAN CORPUSCULAR HGB CONC 33.2 g/dL (32.0-36.0); MEAN CORPUSCULAR VOLUME 103.2 fL (80.0-94.0); MEAN PLATELET VOLUME 10.3 fL (7.4-11.4); MONOCYTES # (AUTO) 0.7 10^3/uL (0.0-1.0); MONOCYTES % (AUTO) 6.5 %; NEUTROPHILS # (AUTO) 7.2 10^3/uL (1.5-6.6); PLT - PLATELET COUNT 176 10^3/uL (130-450); RED BLOOD COUNT 3.77 10^6/uL (4.70-6.10); RED CELL DISTRIBUTION WIDTH 14.5 % (12.0-15.0); WHITE BLOOD COUNT 10.5 x10^3/uL (4.8-10.8)
[2022-10-23 09:27] LABS: ALBUMIN 3.9 g/dL (3.2-5.5); ALBUMIN/GLOBULIN RATIO 1.8 (1.0-2.2); ALKALINE PHOSPHATASE 68 IU/L (42-121); ALT ALANINE AMINOTRANSFERASE 29 IU/L (10-60); AST ASPARTATE AMINOTRANSFERASE 23 IU/L (10-42); BILIRUBIN,TOTAL 0.6 mg/dL (0.2-1.0); BUN - BLOOD UREA NITROGEN 15 mg/dL (6-20); CALCIUM 8.9 mg/dL (8.5-10.3); CARBON DIOXIDE - CO2 29 mmol/L (21-32); CHLORIDE 109 mmol/L (101-111); CHOL/HDL RATIO 2.6 (<5.0); CHOLESTEROL 109 mg/dL; CREATININE 1.2 mg/dL (0.6-1.3); GFR - MDRD 59 (>89); GLUCOSE 106 mg/dL (74-104); HDL CHOLESTEROL 42 mg/dL; LDL CHOLESTEROL,CALCULATED 50 mg/dL; LDL/HDL RATIO 1.2 (<3.6); POTASSIUM 4.4 mmol/L (3.5-4.5); SODIUM 139 mmol/L (135-145); TOTAL PROTEIN 6.1 g/dL (6.4-8.9); TRIGLYCERIDES 86 mg/dL (48-352); VLDL CHOLESTEROL 17 mg/dL
[2022-10-23 09:38] LABS: THYROID STIMULATING HORMONE 2.78 uIU/mL (0.34-5.60)
== END 2022-10-23 08:50 | disposition home or self-care (01) ==
LOC: LAB 08:49
PROVIDERS: ATTEND Nurse Practitioner Acute Care
DX: I10 Essential (primary) hypertension (principal); R53.83 Other fatigue; E78.5 Hyperlipidemia, unspecified
CPT/HCPCS: 36415; 80053; 80061; 83721; 84443; 85025

== ENCOUNTER 2022-11-21 09:07 | Outpatient (CLI) | payer OTHER ==
[2022-11-21 09:21] LABS: BASOPHILS # (AUTO) 0.1 10^3/uL (0.0-0.1); BASOPHILS % (AUTO) 1.1 %; EOSINOPHILS # (AUTO) 0.5 10^3/uL (0.0-0.7); HGB - HEMOGLOBIN 13.5 g/dL (14.0-18.0); LYMPHOCYTES # (AUTO) 1.9 10^3/uL (1.5-3.5); LYMPHOCYTES % (AUTO) 21.7 %; MEAN CORPUSCULAR HEMOGLOBIN 34.5 pg (27.0-31.0); MEAN CORPUSCULAR HGB CONC 33.8 g/dL (32.0-36.0); MEAN CORPUSCULAR VOLUME 102.3 fL (80.0-94.0); MEAN PLATELET VOLUME 11.1 fL (7.4-11.4); MONOCYTES # (AUTO) 0.7 10^3/uL (0.0-1.0); MONOCYTES % (AUTO) 8.3 %; NEUTROPHILS # (AUTO) 5.6 10^3/uL (1.5-6.6); NEUTROPHILS % (AUTO) 62.7 %; PLT - PLATELET COUNT 194 10^3/uL (130-450); RED BLOOD COUNT 3.91 10^6/uL (4.70-6.10)
[2022-11-21 10:01] LABS: FERRITIN 65.6 ng/mL (23.9-336.2)
== END 2022-11-21 09:08 | disposition home or self-care (01) ==
LOC: LAB 09:07
PROVIDERS: ATTEND Internal Medicine
DX: D64.9 Anemia, unspecified (principal); R53.83 Other fatigue
CPT/HCPCS: 36415; 82607; 82728; 82746; 83540; 84466; 85025

== ENCOUNTER 2022-12-09 09:32 | Outpatient (CLI) | payer OTHER ==
[2022-12-09 10:01] LABS: BUN - BLOOD UREA NITROGEN 16 mg/dL (6-20); CARBON DIOXIDE - CO2 27 mmol/L (21-32); CHLORIDE 107 mmol/L (101-111); CREATININE 1.1 mg/dL (0.6-1.3); DIGOXIN 0.4 ng/mL; GFR - MDRD 65 (>89); GLUCOSE 117 mg/dL (74-104); SODIUM 138 mmol/L (135-145)
== END 2022-12-09 09:33 | disposition home or self-care (01) ==
LOC: LAB 09:32
PROVIDERS: ATTEND Internal Medicine Cardiovascular Disease
DX: I50.22 Chronic systolic (congestive) heart failure (principal)
CPT/HCPCS: 36415; 80048; 80162

== ENCOUNTER 2023-02-01 12:26 | Outpatient (CLI) | payer OTHER ==
[2023-02-01 12:56] LABS: ALBUMIN 4.1 g/dL (3.2-5.5); ALBUMIN/GLOBULIN RATIO 1.7 (1.0-2.2); ALKALINE PHOSPHATASE 65 IU/L (42-121); ALT ALANINE AMINOTRANSFERASE 24 IU/L (10-60); AST ASPARTATE AMINOTRANSFERASE 21 IU/L (10-42); BILIRUBIN,TOTAL 0.8 mg/dL (0.2-1.0); BUN - BLOOD UREA NITROGEN 13 mg/dL (6-20); CALCIUM 9.1 mg/dL (8.5-10.3); CARBON DIOXIDE - CO2 28 mmol/L (21-32); CHLORIDE 107 mmol/L (101-111); DIGOXIN 0.7 ng/mL; GFR - MDRD 73 (>89); GLUCOSE 106 mg/dL (74-104); POTASSIUM 4.4 mmol/L (3.5-4.5); SODIUM 139 mmol/L (135-145); TOTAL PROTEIN 6.5 g/dL (6.4-8.9)
== END 2023-02-01 12:27 | disposition home or self-care (01) ==
LOC: LAB 12:26
PROVIDERS: ATTEND Internal Medicine Cardiovascular Disease
DX: I50.22 Chronic systolic (congestive) heart failure (principal)
CPT/HCPCS: 36415; 80053; 80162

== ENCOUNTER 2023-04-13 09:39 | Outpatient (CLI) | payer OTHER ==
[2023-04-13 09:53] LABS: BASOPHILS # (AUTO) 0.1 10^3/uL (0.0-0.1); EOSINOPHILS # (AUTO) 0.5 10^3/uL (0.0-0.7); EOSINOPHILS % (AUTO) 6.6 %; HCT - HEMATOCRIT 42.2 % (42.0-52.0); HGB - HEMOGLOBIN 14.2 g/dL (14.0-18.0); LYMPHOCYTES # (AUTO) 1.7 10^3/uL (1.5-3.5); LYMPHOCYTES % (AUTO) 20.1 %; MEAN CORPUSCULAR HEMOGLOBIN 34.5 pg (27.0-31.0); MEAN CORPUSCULAR HGB CONC 33.6 g/dL (32.0-36.0); MEAN CORPUSCULAR VOLUME 102.7 fL (80.0-94.0); MEAN PLATELET VOLUME 10.8 fL (7.4-11.4); MONOCYTES # (AUTO) 0.6 10^3/uL (0.0-1.0); MONOCYTES % (AUTO) 6.9 %; NEUTROPHILS # (AUTO) 5.4 10^3/uL (1.5-6.6); NEUTROPHILS % (AUTO) 64.9 %; PLT - PLATELET COUNT 174 10^3/uL (130-450); RED BLOOD COUNT 4.11 10^6/uL (4.70-6.10); RED CELL DISTRIBUTION WIDTH 14.6 % (12.0-15.0); WHITE BLOOD COUNT 8.2 x10^3/uL (4.8-10.8)
[2023-04-13 10:26] LABS: FERRITIN 78.2 ng/mL (23.9-336.2)
[2023-04-13 10:48] LABS: PSA TOTAL 1.619 ng/mL (0.000-2.000)
== END 2023-04-13 09:40 | disposition home or self-care (01) ==
LOC: LAB 09:39
PROVIDERS: ATTEND Internal Medicine
DX: D64.9 Anemia, unspecified (principal); Z80.42 Family history of malignant neoplasm of prostate; N40.0 Benign prostatic hyperplasia without lower urinary tract symptoms
CPT/HCPCS: 36415; 82728; 83540; 84153; 84466; 85025

== ENCOUNTER 2023-06-27 08:21 | Outpatient (CLI) | payer OTHER ==
[2023-06-27 08:46] LABS: CALCIUM 9.3 mg/dL (8.5-10.3); CREATININE 1.3 mg/dL (0.6-1.3); POTASSIUM 4.5 mmol/L (3.5-4.5)
[2023-06-27 14:32] LABS: DIGOXIN 0.6 ng/mL
== END 2023-06-27 08:22 | disposition home or self-care (01) ==
LOC: LAB 08:21
PROVIDERS: ATTEND Internal Medicine Cardiovascular Disease
DX: I50.22 Chronic systolic (congestive) heart failure (principal)
CPT/HCPCS: 36415; 80048; 80162

== ENCOUNTER 2023-07-25 06:58 | Outpatient (CLI) | payer OTHER ==
--- NOTE | 2023-07-25 12:21 | XRAY Report ---
PROCEDURE: Abdomen 3+V INDICATIONS: EVAR SURVEILLANCE, HX OF AAA TECHNIQUE: 4 views of the abdomen were acquired. COMPARISON: CT 07/25/2022 FINDINGS: Surgical changes and devices: Endovascular stent present. Sternotomy and partially visualized cardia c leads. Bowel: No pneumoperitoneum. The bowel gas pattern is normal. Stool load within normal limits. Soft tissues: No masses; visualized solid organ contours appear normal in size. No suspicious abdom inal calcifications. Bones: No suspicious bony abnormalities. IMPRESSION: Endovascular stent present within the infrarenal aorta, extending to the iliac vasculature. Reviewed by: Prashant Rolon MD on 07/25/2023 12:20 PM PDT Approved by: Prashant Rolon MD on 07/25/2023 12:20 PM PDT Station ID: [id number]
== END 2023-07-25 06:59 | disposition home or self-care (01) ==
LOC: DI 06:58
PROVIDERS: ATTEND Surgery Vascular Surgery
DX: I71.40 Abdominal aortic aneurysm, without rupture, unspecified (principal)

== ENCOUNTER 2023-08-31 12:27 | Outpatient (CLI) | payer OTHER ==
--- NOTE | 2023-08-31 16:55 | Ultrasound Report ---
PROCEDURE: Renal Ltd (Retroperitoneal Ltd INDICATIONS: EVAR, AAA TECHNIQUE: Real-time scanning was performed of the retroperitoneal organs, with image documentation. COMPARISON: Aorta ultrasound on August 03, 2021. CT abdomen and pelvis on July 15, 2022. FINDINGS: Aortobiiliac stent is patent. Proximal abdominal aorta measures 2.2 x 2.2 cm Mid abdominal aorta measures 2.4 x 2.6 cm Distal abdominal aorta measures 3.3 x 4.3 cm Right common iliac artery measures 1.5 x 1.5 cm Left common iliac artery measures 1.7 x 1.4 cm IMPRESSION: Patent aortobiiliac stent. Distal abdominal aorta measures 3.3 x 4.3 cm in maximum dimension. On prio r CT abdomen and pelvis dated July 15, 2022, infrarenal abdominal aorta measured 4.6 x 3.2 cm. Reviewed by: Juanis Engel MD on 08/31/2023 4:54 PM PDT Approved by: Juanis Engel MD on 08/31/2023 4:54 PM PDT Station ID: [id number]
== END 2023-08-31 12:28 | disposition home or self-care (01) ==
LOC: DI 12:27
PROVIDERS: ATTEND Surgery Vascular Surgery
DX: I71.40 Abdominal aortic aneurysm, without rupture, unspecified (principal)

== ENCOUNTER 2023-10-09 15:04 | Emergency (ER) | payer OTHER ==
[2023-10-09 15:23] VITALS: O2SAT 100
[2023-10-09 17:04] VITALS: BP 109/64
--- NOTE | 2023-10-09 17:04 | ED Physician Documentation ---
PD HPI ABD PAIN - Stated complaint Stated Complaint: GI - Chief complaint Chief Complaint: Abd Pain - History obtained from History obtained from: Patient - Additional information Additional information: This is a 73-year-old male with a history of intermittent constipation who presents reporting that he is constipated and it is miserable. He has not been able to have a bowel movement for a few days but states he tries to and feels it at his rectum but is not able to pass a stool. He denies any abdominal pain, but is uncomfortable with a constant feeling of needing to have a bowel movement. He has had no vomiting and is tolerating p.o. well, no fever. He has no known urinary symptoms. He has tried some sort of suppository which he took earlier today, and states he is starting to pass some slight liquid but still feels like there is a big ball of stool in his rectum. He states last time this happened a few years ago they had to do a digital disimpaction. Review of Systems Constitutional: reports: Reviewed and negative Cardiac: reports: Reviewed and negative Respiratory: reports: Reviewed and negative GI: reports: Constipation. denies: Abdominal Pain, Abdominal Swelling, Nausea, Vomiting, Diarrhea : reports: Reviewed and negative PD PAST MEDICAL HISTORY - Past Medical History Past Medical History: Yes Cardiovascular: Hypertension, High cholesterol, Coronary artery disease, NM, Other Respiratory: Pneumonia Neuro: None Endocrine/Autoimmune: None GI: Chronic constipation, Other : None HEENT: None Psych: None Musculoskeletal: Osteoarthritis Derm: Psoriasis - Past Surgical History Past Surgical History: Yes Ortho: Other Cardiovascular: CABG, Pacemaker, AICD - Present Medications Home Medications: Ambulatory Orders Medication Instructions Recorded Confirmed Atorvastatin Calcium 80 mg PO DAILY 03/17/16 10/09/23 Apixaban [Eliquis] 5 mg PO BID 04/18/21 10/09/23 Spironolactone [Aldactone] 12.5 mg PO DAILY 12/07/21 10/09/23 Aspirin [Silver Plume Aspirin] 81 mg PO DAILY 02/28/22 10/09/23 Ezetimibe [Zetia] 10 mg PO QD 02/28/22 10/09/23 lisinopriL [Zestril] 2.5 mg PO DAILY 05/30/22 05/30/22 Ascorbic Acid [Vitamin C] 1 tab PO DAILY 10/09/23 10/09/23 Cholecalciferol (Vitamin D3) 1 cap PO DAILY 10/09/23 10/09/23 [Vitamin D3] Cyanocobalamin (Vitamin B-12) 1 tab PO DAILY 10/09/23 10/09/23 [Vitamin B12] Digoxin [Lanoxin] 1 tab PO DAILY 10/09/23 10/09/23 - Allergies Allergies/Adverse Reactions: Allergies Allergy/AdvReac Type Severity Reaction Status Date / Time codeine AdvReac Nausea Verified 10/09/23 15:17 - Social History Does the pt smoke?: No Smoking Status: Never smoker Does the pt drink ETOH?: No Does the pt have substance abuse?: No PD ED PE NORMAL - Vitals Vital signs reviewed: Yes - General General: Alert and oriented X 3, No acute distress, Well developed/nourished - HEENT HEENT: Atraumatic, Moist mucous membranes - Cardiac Cardiac: RRR, No murmur - Respiratory Respiratory: No respiratory distress, Clear bilaterally - Abdomen Abdomen: Normal bowel sounds, Soft, Non tender, Non distended, No organomegaly - Back Back: No CVA TTP - Derm Derm: Normal color, Warm and dry, No rash Results - Vitals Vitals: Vital Signs - 24 hr 10/09/23 10/09/23 10/09/23 15:17 16:56 18:43 Temperature 36.5 C 36.2 C L Heart Rate 60 59 L Respiratory 16 16 16 Rate Blood Pressure 110/60 109/64 O2 Saturation 100 100 Oxygen O2 Source Room air - Rads (name of study) No standard instances Relevant Findings:: Final report received PD Medical Decision Making - ED course Complexity details: reviewed results, re-evaluated patient, considered differential, d/w patient ED course: This is a 73-year-old male who presented with concerns for constipation. He had pain in the rectum with the sensation that he needed to have a bowel movement but cannot completely excavate. He did not have any abdominal pain however. I did consider constipation versus bowel obstruction small bowel obstruction, versus a colitis, hemorrhoids, anal fissure, anal mass among others. The patient had taken a suppository before coming in and had not had relief yet so we were planning to do a fleets enema and possible disimpaction however the patient then went to the restroom, was able to have a complete bowel movement and felt 100% better therefore he did not require enema or disimpaction and concern for bowel obstruction is now essentially 0. I did obtain a x-ray prior to this and it showed some moderate constipation, no other acute findings. I do think the patient is stable for discharge home at this time, he was encouraged to stay well-hydrated, stay active, and we discussed [id number] options for stool softeners/bowel regimen. And increasing his fruits and vegetables and fiber intake. Return precautions viewed in detail for new or worsening symptoms. Departure - Departure Disposition: 01 Home, Self Care Clinical Impression: Constipation Qualifiers: Constipation type: unspecified constipation type Qualified Code(s): K59.00 - Constipation, unspecified Condition: Good Instructions: ED Constipation Comments: Omari, Your constipation resolved while you were here so we did not end up doing any interventions. If your constipation recurs or you develop abdominal pain, please return to the ER. Try to stay well-hydrated and continue the Activia yogurt which may help, and that you can get [id number] MiraLAX to use on a regular basis if your stools are hard. Return to the ER at any point in time if needed. Forms: PCP List Discharge Date/Time: 10/09/23 18:44
--- NOTE | 2023-10-09 17:09 | XRAY Report ---
PROCEDURE: Abdomen Acute INDICATIONS: constipation, eval for signs of obstruction TECHNIQUE: 2 views of the abdomen were acquired. COMPARISON: None. FINDINGS: Surgical changes and devices: Left chest wall generator with cardiac leads. EVAR. Chest: Lungs are clear. Heart size is normal. No pleural effusions. No pneumoperitoneum. Bowel: No pneumoperitoneum. The bowel gas pattern is normal. Moderate colonic stool load. Soft tissues: No masses; visualized solid organ contours appear normal in size. No suspicious abdom inal calcifications. Bones: No suspicious bony abnormalities. IMPRESSION: No acute abdominal or chest pathology. Moderate colonic stool load. Nonobstructive bowel gas pattern. Reviewed by: Prashant Rolon MD on 10/09/2023 5:06 PM PDT Approved by: Prashant Rolon MD on 10/09/2023 5:06 PM PDT Station ID: [id number]
[2023-10-09] MEDS: MINERAL OIL ENEMA 133 ML BOTTLE RC STA (18:31)
== END 2023-10-09 18:44 | disposition home or self-care (01) ==
LOC: ED 15:04
DX: K59.00 Constipation, unspecified (principal)
CPT/HCPCS: 99283